=== PATIENT | male | born 1960 | race Caucasian/White ===

== ENCOUNTER 2019-03-24 20:05 | Inpatient (IN) | payer MEDICARE ==
[2019-03-24 21:06] LABS: Absolute Lymphocytes (CBC) 0.9 K/uL (0.7-4.9); Basophils % 0.6 % (0-1.3); Hematocrit 57.9 % (39.6-49.0); Lymphocytes % 11.1 % (15.3-44.8); MPV 10.1 fL (7.6-11.3); RBC Red Blood Cell Count 6.19 M/uL (4.33-5.43)
[2019-03-24] MEDS ORDERED: NA CHLORIDE 0.9% 2,000 ML ONE (21:14)
[2019-03-24] MEDS ORDERED: CLINDAMYCIN 600MG/D5W 600 MG/50 ML BAG IV ONE (21:14)
[2019-03-24 21:15] LABS: Protime INR 1.32
[2019-03-24 21:27] LABS: Blood Morphology Comment NOT SEEN (NOT SEEN); Platelet Estimate DECR; Platelets, Giant PRESENT; Urine White Blood Cell Casts OK
[2019-03-24 21:28] LABS: ALT/SGPT 19 U/L (12-78); AST/SGOT 13 U/L (15-37); Albumin 3.7 g/dL (3.4-5.0); Alkaline Phosphatase 66 U/L (45-117); Amylase Level 24 U/L (25-115); BUN Blood Urea Nitrogen 17 mg/dL (7-18); Bicarbonate 32 mmol/L (21-32); Bilirubin Direct 0.4 mg/dL (0-0.2); Bilirubin Total 2.5 mg/dL (0.2-1.0); CKMB Creatine Kinase MB 2.4 ng/mL (0.3-3.6); Creatine Phosphokinase 66 U/L (39-308); Glucose Level 101 mg/dL (74-106); Lipase 42 U/L (73-393); Potassium 3.8 mmol/L (3.5-5.1); Protein, Total 7.3 g/dL (6.4-8.2); Sodium Level 137 mmol/L (136-145); Troponin (Emerg Dept Use Only) < 0.02 ng/mL (0.0-0.045)
[2019-03-24] MEDS ORDERED: NA CHLORIDE 0.9% 250 ML ONE (21:55)
[2019-03-24] MEDS ORDERED: VANCOMYCIN 1 GM/VIAL ONE (21:55)
[2019-03-24 22:12] LABS: Urine Blood NEGATIVE (NEG); Urine Glucose NEGATIVE (NEG); Urine Protein NEGATIVE (NEG)
[2019-03-24 22:23] LABS: Urine Bacteria <20 /HPF (NONE SEEN); Urine Culture Reflex Order NOT NEEDED; Urine RBC <5 /HPF (NONE SEEN)
[2019-03-24] MEDS ORDERED: ASPIRIN 81 MG CHEWABLE TABLET ONE (23:36)
[2019-03-25] MEDS ORDERED: PIPER/TAZO/NS 3.375gm 3.375 GM/100 ML BAG ONE ×2 (00:38→01:18)
[2019-03-25] MEDS ORDERED: NICOTINE 21 MG/PAT TD ONE (00:38)
--- NOTE | 2019-03-25 01:39 | ER ---
Nurse's Notes [facility] Name: Wisam Espinal Age: 58 yrs Sex: Male : 1960 Arrival Date: 03/24/2019 Time: 20:10 Bed 5 Private MD: Diagnosis: Cellulitis of left lower limb Presentation: 03/24 20:15 Presenting complaint: Patient states: redness, swelling to LLE started today, from alcaraz iw to ankle. Transition of care: patient was not received from another setting of care. Onset of symptoms was March 24, 2019. Risk Assessment: Do you want to hurt yourself or someone else? Patient reports no desire to harm self or others. Initial Sepsis Screen: Does the patient meet any 2 criteria? No. Patient's initial sepsis screen is negative. Does the patient have a suspected source of infection? No. Patient's initial sepsis screen is negative. Care prior to arrival: None. 20:15 Method Of Arrival: Ambulatory iw 20:15 Acuity: ELLIOTT 3 iw Historical: - Allergies: 20:18 Tetanus Vaccines \T\ Toxoid; iw - Home Meds: 20:18 oxycodone 10 mg oral tab every 6 hours [Active]; Lyrica Oral [Active]; Albuterol iw Nebulizer [Active]; Albuterol Inhl [Active]; - PMHx: 20:18 COPD; Chronic pain; iw - PSHx: 20:18 back; Appendectomy; iw - Immunization history:: Adult Immunizations not up to date, Last tetanus immunization:. - Coronavirus screen:: The patient has NOT traveled to [place], [place], or [place] in the past 14 days. Proceed with normal triage process as indicated. - Social history:: Smoking status: Patient reports the use of cigarette tobacco products, smokes one pack cigarettes per day. - Ebola Screening: : Patient negative for fever greater than or equal to 101.5 degrees Fahrenheit, and additional compatible Ebola Virus Disease symptoms Patient denies exposure to infectious person Patient denies travel to an Ebola-affected area in the 21 days before illness onset No symptoms or risks identified at this time. Screenin:00 Abuse screen: Denies threats or abuse. Nutritional screening: No deficits noted. vc Tuberculosis screening: No symptoms or risk factors identified. Fall Risk None identified. Assessment: 20:30 General: Appears in no apparent distress. comfortable, Behavior is calm, cooperative. vc Pain: Denies pain. Neuro: Level of Consciousness is awake, alert, obeys commands, Oriented to person, place, time. Cardiovascular: Capillary refill < 3 seconds Patient's skin is warm and dry. Respiratory: Respiratory effort is even, unlabored. GI: No signs and/or symptoms were reported involving the gastrointestinal system. : No signs and/or symptoms were reported regarding the genitourinary system. EENT: No signs and/or symptoms were reported regarding the EENT system. Derm: Skin is moist, Skin is red, red to left lower leg. Musculoskeletal: Range of motion: intact in all extremities. 21:30 Reassessment: Patient and/or family updated on plan of care and expected duration. Pain vc level reassessed. 22:30 Reassessment: Patient and/or family updated on plan of care and expected duration. Pain vc level reassessed. Patient is alert, oriented x 3, equal unlabored respirations, skin warm/dry/pink. Patient denies pain at this time. 23:30 Reassessment: Patient and/or family updated on plan of care and expected duration. Pain vc level reassessed. Family at bedside. Patient states feeling better. 03/25 00:30 Reassessment: Patient is alert, oriented x 3, equal unlabored respirations, skin vc warm/dry/pink. Patient denies pain at this time. 01:30 Reassessment: Patient and/or family updated on plan of care and expected duration. Pain vc level reassessed. Provider at bedside. 01:52 Reassessment: report given to Ally JIMENEZ nurse for room 221. jd3 Vital Signs: 03/24 20:18 BP 125 / 96; Pulse 105; Resp 20; Temp 98.4; Pulse Ox 90% on R/A; Weight 122.47 kg; iw Height 6 ft. (182.88 cm); Pain 10/10; 21:24 BP 127 / 81; Pulse 98; Resp 16; Pulse Ox 100% on R/A; ar5 22:15 BP 118 / 70; Pulse 95; Resp 20; Pulse Ox 95% on R/A; Pain 0/10; vc 23:00 BP 111 / 72; Pulse 95; Resp 18; Pulse Ox 97% on 3 lpm NC; vc 23:42 BP 111 / 72; Pulse 94; Resp 18 S; Pulse Ox 95% on R/A; jd3 03/25 00:30 BP 132 / 88; Pulse 89; Resp 18; Pulse Ox 97% on 3 lpm NC; vc 01:15 BP 123 / 98; Pulse 92; Resp 18; Pulse Ox 95% on 3 lpm NC; vc 03/24 20:18 Body Mass Index 36.62 (122.47 kg, 182.88 cm) iw ED Course: 03/24 20:10 Patient arrived in ED. jg7 20:16 Triage completed. iw 20:18 Arm band placed on. iw 20:23 Chel Maguire FNP-C is PHCP. snw 20:23 Ross Sanchez MD is Attending Physician. snw 20:28 Sunitha Yoder, TONY is Primary Nurse. vc 20:30 Patient has correct armband on for positive identification. vc 20:46 Chest Single View XRAY In Process Unspecified. EDMS 20:55 Inserted saline lock: 20 gauge in right antecubital area, using aseptic technique. lp1 Blood collected. 20:55 Initial lab(s) drawn, by me, sent to lab. First set of blood cultures drawn by me. lp1 21:41 Lower Extremity Artery Uni Ltd US In Process Unspecified. EDMS 23:20 Inserted saline lock: 20 gauge in right antecubital area, using aseptic technique. [facility] 03/25 01:37 Deyanira Do MD is Hospitalizing Provider. snw 01:54 No provider procedures requiring assistance completed. Patient admitted, IV remains in jd3 place. Administered Medications: 03/24 21:45 Drug: NS 0.9% (30 ml/kg) 30 ml/kg Route: IV; Rate: bolus; Site: right antecubital; vc 03/25 01:51 Follow up: IV Status: Infusion continued upon transfer vc 03/24 22:06 Drug: vancoMYCIN 1 grams Route: IVPB; Infused Over: 2 hrs; Site: right antecubital; vc 23:30 Follow up: Response: No adverse reaction; IV Status: Completed infusion vc 22:07 Drug: Clindamycin 600 mg Route: IVPB; Infused Over: 30 mins; Site: right antecubital; vc 23:30 Follow up: Response: No adverse reaction; IV Status: Completed infusion vc 23:40 Drug: Aspirin Chewable Tablet 81 mg Route: PO; vc 03/25 01:46 Follow up: Response: No adverse reaction vc 00:46 Drug: Nicotine 21 mg/24 hr 1 patches {Note: right shoulder.} Route: Transdermal; Site: vc affected area; 01:30 Drug: Zosyn 3.375 grams Route: IVPB; Infused Over: 60 mins; Site: left antecubital; vc 01:49 Follow up: Response: No adverse reaction; Medication administered at discharge. vc 01:49 Follow up: IV Status: Infusion continued upon transfer; Patient transfered to floor vc with IV infusing Intake: Outcome: 01:38 Decision to Hospitalize by Provider. snw 01:54 Admitted to Med/surg accompanied by tech, via wheelchair, room 221, with chart, Report jd3 called to Ally JIMENEZ 01:54 Condition: stable 01:54 Instructed on the need for admit, Demonstrated understanding of instructions. 02:13 Patient left the ED. vc Signatures: Dispatcher [employer] EDMS Chel Maguire, HAT RENOVATOR-C HAT RENOVATOR-Csnw Zhanna Bhakta, RN Luba Velasco RN RN lp1 Adi Montes RN RN jd3 Susie Davis Jessica jg7 Calcote, Vanessa, RN RN vc
--- NOTE | 2019-03-25 01:39 | EDPHYS ---
Physician Documentation [facility] Name: Wisam Espinal Age: 58 yrs Sex: Male : 1960 Arrival Date: 03/24/2019 Time: 20:10 Bed 5 Private MD: ED Physician Ross Sanchez HPI: 03/24 22:11 This 58 yrs old Male presents to ER via Ambulatory with complaints of Leg snw Swelling. 22:11 The patient presents with pain, that is acute, swelling, tenderness. The complaints snw affect the left leg. Context: The problem was sustained at home, resulted from an unknown cause, the patient can partially bear weight, the patient is able to ambulate. Onset: The symptoms/episode began/occurred gradually, yesterday, and became worse today. Associated signs and symptoms: Pertinent positives: fever, swelling, redness. Treatment prior to arrival includes: no previous treatment. Severity of symptoms: At their worst the symptoms were moderate, severe. The patient has not experienced similar symptoms in the past. The patient has not recently seen a physician. hx of COPD, chronic pain. Used to see Dr. Abdullahi, Dr. Urrutia. Dr. Abdullahi moved and pt has no PCP. Historical: - Allergies: 20:18 Tetanus Vaccines \T\ Toxoid; iw - Home Meds: 20:18 oxycodone 10 mg oral tab every 6 hours [Active]; Lyrica Oral [Active]; Albuterol iw Nebulizer [Active]; Albuterol Inhl [Active]; - PMHx: 20:18 COPD; Chronic pain; iw - PSHx: 20:18 back; Appendectomy; iw - Immunization history:: Adult Immunizations not up to date, Last tetanus immunization:. - Coronavirus screen:: The patient has NOT traveled to [place], [place], or [place] in the past 14 days. Proceed with normal triage process as indicated. - Social history:: Smoking status: Patient reports the use of cigarette tobacco products, smokes one pack cigarettes per day. - Ebola Screening: : Patient negative for fever greater than or equal to 101.5 degrees Fahrenheit, and additional compatible Ebola Virus Disease symptoms Patient denies exposure to infectious person Patient denies travel to an Ebola-affected area in the 21 days before illness onset No symptoms or risks identified at this time. ROS: 22:11 Constitutional: Negative for fever, chills, and weight loss, Eyes: Negative for injury, snw pain, redness, and discharge, ENT: Negative for injury, pain, and discharge, Neck: Negative for injury, pain, and swelling, Cardiovascular: Negative for chest pain, palpitations, and edema, Respiratory: Negative for shortness of breath, cough, wheezing, and pleuritic chest pain, Abdomen/GI: Negative for abdominal pain, nausea, vomiting, diarrhea, and constipation, Back: Negative for injury and pain, : Negative for injury, bleeding, discharge, and swelling, MS/Extremity: Negative for injury and deformity, Neuro: Negative for headache, weakness, numbness, tingling, and seizure. 22:11 Skin: Positive for cellulitis, erythema, swelling, of the left calf. Exam: 20:48 Constitutional: This is a well developed, well nourished patient who is awake, alert, snw and in no acute distress. Head/Face: Normocephalic, atraumatic. Eyes: Pupils equal round and reactive to light, extra-ocular motions intact. Lids and lashes normal. Conjunctiva and sclera are non-icteric and not injected. Cornea within normal limits. Periorbital areas with no swelling, redness, or edema. ENT: Nares patent. No nasal discharge, no septal abnormalities noted. Tympanic membranes are normal and external auditory canals are clear. Oropharynx with no redness, swelling, or masses, exudates, or evidence of obstruction, uvula midline. Mucous membranes moist. Neck: Trachea midline, no thyromegaly or masses palpated, and no cervical lymphadenopathy. Supple, full range of motion without nuchal rigidity, or vertebral point tenderness. No Meningismus. Chest/axilla: Normal chest wall appearance and motion. Nontender with no deformity. No lesions are appreciated. Cardiovascular: Regular rate and rhythm with a normal S1 and S2. No gallops, murmurs, or rubs. Normal PMI, no JVD. No pulse deficits. Respiratory: Lungs have equal breath sounds bilaterally, clear to auscultation and percussion. No rales, rhonchi or wheezes noted. Mild increased work of breathing, no retractions or nasal flaring. Pt's norm is 90-92% room air Abdomen/GI: Soft, non-tender, with normal bowel sounds. No distension or tympany. No guarding or rebound. No evidence of tenderness throughout. Back: No spinal tenderness. No costovertebral tenderness. Full range of motion. Neuro: Awake and alert, GCS 15, oriented to person, place, time, and situation. Cranial nerves II-XII grossly intact. Motor strength 5/5 in all extremities. Sensory grossly intact. Cerebellar exam normal. Normal gait. Psych: Awake, alert, with orientation to person, place and time. Behavior, mood, and affect are within normal limits. 20:48 Skin: Appearance: normal except for affected area, cellulitis, that is severe, well demarcated, on the lateral aspect of left calf, left calf, medial aspect of left calf and left alcaraz. Vital Signs: 20:18 BP 125 / 96; Pulse 105; Resp 20; Temp 98.4; Pulse Ox 90% on R/A; Weight 122.47 kg; iw Height 6 ft. (182.88 cm); Pain 10/10; 21:24 BP 127 / 81; Pulse 98; Resp 16; Pulse Ox 100% on R/A; ar5 22:15 BP 118 / 70; Pulse 95; Resp 20; Pulse Ox 95% on R/A; Pain 0/10; vc 23:00 BP 111 / 72; Pulse 95; Resp 18; Pulse Ox 97% on 3 lpm NC; vc 23:42 BP 111 / 72; Pulse 94; Resp 18 S; Pulse Ox 95% on R/A; jd3 03/25 00:30 BP 132 / 88; Pulse 89; Resp 18; Pulse Ox 97% on 3 lpm NC; vc 01:15 BP 123 / 98; Pulse 92; Resp 18; Pulse Ox 95% on 3 lpm NC; vc 03/24 20:18 Body Mass Index 36.62 (122.47 kg, 182.88 cm) iw MDM: 03/24 20:24 Patient medically screened. mimi 03/25 01:35 Data reviewed: vital signs, nurses notes. Data interpreted: Pulse oximetry: on room air snw is 95 %. Interpretation: acceptable. Counseling: I had a detailed discussion with the patient and/or guardian regarding: the historical points, exam findings, and any diagnostic results supporting the discharge/admit diagnosis, lab results, radiology results, the need for further work-up and treatment in the hospital. Physician consultation: Deyanira Do MD was called at 00:45, was contacted at 00:45, regarding admission, to the telemetry unit. 03/24 20:38 Order name: Amylase, Serum; Complete Time: 21:30 w 03/24 20:38 Order name: Basic Metabolic Panel; Complete Time: 21:30 w 03/24 20:38 Order name: Blood Culture Adult (2) 03/24 20:38 Order name: CBC with Diff; Complete Time: 21:30 w 03/24 20:38 Order name: Ckmb; Complete Time: 21:30 w 03/24 20:38 Order name: CPK; Complete Time: 21:30 w 03/24 20:38 Order name: Lactate; Complete Time: 22:11 03/24 20:38 Order name: LFT's; Complete Time: 21:30 w 03/24 20:38 Order name: Lipase; Complete Time: 21:30 03/24 20:38 Order name: Procalcitonin; Complete Time: 22:11 03/24 20:38 Order name: Protime (+inr); Complete Time: 21:21 w 03/24 20:38 Order name: Ptt, Activated; Complete Time: 21:21 03/24 20:38 Order name: Troponin (emerg Dept Use Only); Complete Time: 21:30 w 03/24 20:38 Order name: Urine Microscopic Only; Complete Time: 22:28 w 03/24 20:38 Order name: Chest Single View XRAY 03/24 20:38 Order name: Accucheck; Complete Time: 21:27 w 03/24 20:38 Order name: Cardiac monitoring; Complete Time: 21:27 w 03/24 20:38 Order name: EKG - Nurse/Tech; Complete Time: 21:27 w 03/24 20:38 Order name: IV Saline Lock - Large Bore; Complete Time: 21:09 w 03/24 20:38 Order name: Lower Extremity Artery Uni Ltd US 03/24 21:12 Order name: CBC Smear Scan; Complete Time: 21:30 EDMS 03/24 21:37 Order name: Glucose, Ancillary Testing; Complete Time: 22:11 EDMS 03/24 22:05 Order name: Urine Dipstick--Ancillary (enter results); Complete Time: 22:14 sp 03/25 01:32 Order name: Sedimentation RateSamuel EDMS 03/24 20:38 Order name: Labs collected and sent; Complete Time: 21:09 snw 03/24 20:38 Order name: O2 Per Protocol; Complete Time: 21:27 snw 03/24 20:38 Order name: O2 Sat Monitoring; Complete Time: 21:27 snw Administered Medications: 03/24 21:45 Drug: NS 0.9% (30 ml/kg) 30 ml/kg Route: IV; Rate: bolus; Site: right antecubital; vc 03/25 01:51 Follow up: IV Status: Infusion continued upon transfer vc 03/24 22:06 Drug: vancoMYCIN 1 grams Route: IVPB; Infused Over: 2 hrs; Site: right antecubital; vc 23:30 Follow up: Response: No adverse reaction; IV Status: Completed infusion vc 22:07 Drug: Clindamycin 600 mg Route: IVPB; Infused Over: 30 mins; Site: right antecubital; vc 23:30 Follow up: Response: No adverse reaction; IV Status: Completed infusion vc 23:40 Drug: Aspirin Chewable Tablet 81 mg Route: PO; vc 03/25 01:46 Follow up: Response: No adverse reaction vc 00:46 Drug: Nicotine 21 mg/24 hr 1 patches {Note: right shoulder.} Route: Transdermal; Site: vc affected area; 01:30 Drug: Zosyn 3.375 grams Route: IVPB; Infused Over: 60 mins; Site: left antecubital; vc 01:49 Follow up: Response: No adverse reaction; Medication administered at discharge. vc 01:49 Follow up: IV Status: Infusion continued upon transfer; Patient transfered to floor vc with IV infusing Disposition: 02:31 Co-signature as Attending Physician, Ross Sanchez MD I agree with the assessment and mimi plan of care. Disposition: 03/25/19 01:38 Hospitalization ordered by Deyanira Do for Inpatient Admission. Preliminary diagnosis is Cellulitis of left lower limb. - Bed requested for Telemetry/MedSurg (Inpatient). - Status is Inpatient Admission. vc - Condition is Stable. - Problem is new. - Symptoms are unchanged. UTI on Admission? No Signatures: Dispatcher [employer] EDMS Ross Sanchez MD MD cha Therrien, Shelly, SITE PROMOTION AGENT-C SITE PROMOTION AGENT-Csnw Zhanna Bhakta, RN RN Grace Connor RN RN cg Sunitha Yoder RN RN vc Corrections: (The following items were deleted from the chart) 01:38 01:38 Hospitalization Ordered by Deyanira oD MD for Inpatient Admission. Preliminary cg diagnosis is Cellulitis of left lower limb. Bed requested for Telemetry/MedSurg (Inpatient). Status is Inpatient Admission. Condition is Stable. Problem is new. Symptoms are unchanged. UTI on Admission? No. snw 02:13 01:38 03/25/2019 01:38 Hospitalization Ordered by Deyanira Do MD for Inpatient vc Admission. Preliminary diagnosis is Cellulitis of left lower limb. Bed requested for Telemetry/MedSurg (Inpatient). Status is Inpatient Admission. Condition is Stable. Problem is new. Symptoms are unchanged. UTI on Admission? No. cg
[2019-03-25 02:26] VITALS: BMI 37.2
[2019-03-25] MEDS ORDERED: ONDANSETRON 4 MG/2 ML VIAL IV PRN (03:18)
[2019-03-25] MEDS ORDERED: MORPHINE 2 MG/ML SYR IV PRN (03:18)
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
[2019-03-25 06:46] LABS: Absolute Lymphocytes (CBC) 1.3 K/uL (0.7-4.9); Basophils % 0.4 % (0-1.3); Hematocrit 52.4 % (39.6-49.0); Lymphocytes % 17.7 % (15.3-44.8); MPV 10.8 fL (7.6-11.3); RBC Red Blood Cell Count 5.65 M/uL (4.33-5.43)
[2019-03-25 06:59] LABS: Protime INR 1.17
[2019-03-25 07:16] LABS: Bilirubin Total 1.9 mg/dL (0.2-1.0); Magnesium 2.1 mg/dL (1.8-2.4); Potassium 4.2 mmol/L (3.5-5.1); Protein, Total 6.2 g/dL (6.4-8.2); Thyroid Stimulating Hormone 1.2 uIU/mL (0.360-3.740)
[2019-03-25 07:20] LABS: Blood Morphology Comment NOT SEEN (NOT SEEN); Platelet Estimate DECR; Urine White Blood Cell Casts OK
[2019-03-25] MEDS: PIPER/TAZO/NS 3.375gm 3.375 GM/100 ML BAG IVPB SCH ×2 (08:58→18:01)
[2019-03-25] MEDS: NICOTINE 14 MG/PAT TD SCH (08:58)
[2019-03-25] MEDS: VANCOMYCIN 2 GM in NA CHLORIDE 0.9% 500 ML IVPB SCH ×2 (08:59→21:14)
[2019-03-25] MEDS ORDERED: CLINDAMYCIN INJ 600 MG in NA CHLORIDE 0.9% 50 ML IV SCH (09:00)
[2019-03-25] MEDS ORDERED: ACETAMINOPHEN PO PRN (10:46)
[2019-03-25] MEDS ORDERED: OXYCODONE HCL PO PRN (10:46)
--- NOTE | 2019-03-25 10:46 | P.PN ---
Subjective Date of Service: 03/25/19 Chief Complaint: LLE swelling and erythema Subjective: Improving (Patient doing well slight pain has cellulitis of the left leg) Review of Systems 10-point ROS is otherwise unremarkable Physical Examination - Vital Signs Temperature: 98 F Blood Pressure: 135/77 Pulse: 92 Respirations: 18 Pulse Ox (%): 95 - Physical Exam General: Alert, In no apparent distress, Oriented x3 Neck: Supple, Other Cardiovascular: Edema Gastrointestinal: Normal bowel sounds, Soft and benign, Non-distended Integumentary: Other (Patient has cellulitis of the left leg extending about 4 inches below the knee) Other Physical/Emotional Findings: LLE w/ erythema, swelling and dry skin. breaks in skin of the plantar surface of the foot. erythema extends from dorsum of foot to the knee. - Studies Laboratory Data (last 24 hrs) 03/24/19 20:55: PT 15.4 H, INR 1.32, APTT 37.0 H 03/24/19 20:55: WBC 8.2, Hgb 19.0 H, Hct 57.9 H, Plt Count 108 L 03/24/19 20:55: Sodium 137, Potassium 3.8, BUN 17, Creatinine 1.14, Glucose 101 , Total Bilirubin 2.5 H, AST 13 L, ALT 19, Alkaline Phosphatase 66, Amylase 24 L , Lipase 42 L Assessment & Plan - Problems (Diagnosis) (1) Cellulitis and abscess of left leg Current Visit: Yes Status: Acute Plan: Patient is 58 years of age admitted with cellulitis is clinically doing better he has a history of severe COPD add cultures are pending labs unremarkable white count is normal possible discharge tomorrow combination of doxycycline and cephalosporin low risk for Mr SA Discharge Plan: Home Plan to discharge in: 24 Hours
--- NOTE | 2019-03-25 11:18 | RAD REPORT ---
EXAM DESCRIPTION: RAD - Chest Single View - 03/24/2019 8:46 pm CLINICAL HISTORY: leg infection;COPD Chest pain. COMPARISON: Chest Pa And Lat (2 Views) dated 04/26/2018; Chest Pa And Lat (2 Views) dated 01/21/2016; CHEST PA AND LAT 2 VIEW dated 06/22/2011; CHEST PA AND LAT 2 VIEW dated 12/02/2010; Lung Cancer Screen ing CT W/O dated 05/17/2018 FINDINGS: Portable technique limits examination quality. Chronic right basilar opacity is present likely representing chronic atelectasis. Mild interstitial p ulmonary edema is possible. The heart is upper limit normal size. Small left pleural effusion. No dis placed fractures.
--- NOTE | 2019-03-25 11:22 | RAD REPORT ---
EXAM DESCRIPTION: US - Lower Extremity Artery Uni Ltd - 03/24/2019 9:41 pm CLINICAL HISTORY: Swelling;Pain COMPARISON: No comparisons FINDINGS: Left lower extremity arterial Doppler interrogation was performed. Diffuse monophasic waveforms are seen throughout the left lower extremity arterial system. No occlusi on is present. Flow velocities are within acceptable limits. IMPRESSION: Diffuse monophasic waveforms throughout the left lower extremity arterial system likely indicates presence of inflow stenosis.
[2019-03-25] MEDS: Oxycodone HCl/Acetaminophen 1 TAB TAB PO PRN ×2 (15:57→21:14)
[2019-03-25] MEDS ORDERED: VANCOMYCIN/NS 1 gm 1 GM/250 ML BAG IVPB SCH (19:00)
[2019-03-25] MEDS ORDERED: PREGABALIN 75 MG PO SCH (21:00)
[2019-03-25] MEDS: PREGABALIN 75 MG CAP PO SCH (21:14)
[2019-03-25] MEDS ORDERED: NA CHLORIDE 0.9% 250 ML ONE (22:54)
[2019-03-26] MEDS: PIPER/TAZO/NS 3.375gm 3.375 GM/100 ML BAG IVPB SCH ×2 (00:18→08:38)
[2019-03-26] MEDS: Oxycodone HCl/Acetaminophen 1 TAB TAB PO PRN ×2 (03:13→08:37)
[2019-03-26 06:44] LABS: Hematocrit 53.8 % (39.6-49.0); MPV 10.2 fL (7.6-11.3); RBC Red Blood Cell Count 5.71 M/uL (4.33-5.43)
[2019-03-26 08:15] LABS: Blood Morphology Comment NOT SEEN (NOT SEEN); Platelet Estimate DECR; Urine White Blood Cell Casts OK
[2019-03-26 08:23] VITALS: BP 137/84; TEMP 98
[2019-03-26] MEDS: PREGABALIN 75 MG CAP PO SCH (08:37)
[2019-03-26] MEDS: NICOTINE 14 MG/PAT TD SCH (08:38)
[2019-03-26] MEDS: VANCOMYCIN 2 GM in NA CHLORIDE 0.9% 500 ML IVPB SCH (08:39)
--- NOTE | 2019-03-26 09:58 | P.DS ---
Admission Date: 03/25/19 Discharge Date: 03/26/19 Disposition: ROUTINE DISCHARGE Discharge Condition: GOOD Reason for Admission: LLE swelling and erythema - Problems (1) Cellulitis and abscess of left leg Current Visit: Yes Status: Acute Brief History of Present Illness: Patient is 58 years of age with a history of severe COPD admitted with cellulitis Hospital Course: Clinical course was uncomplicated was treated with antibiotics at the time of her discharge there was no progression of his cellulitis pain and declined vital signs stable cultures negative no fever chest clear cardiovascular system os sounds normal abdomen soft extremities is been no significant change or progression of his underlying redness in the left leg patient is able to ambulate. He has been instructed to follow up with primary care or call my office if there is any questions he does need a referral to come and see me for a specialist will fax in a refill in for [employer] Vital Signs/Physical Exam: Temp Pulse Resp BP Pulse Ox 98 F 72 20 137/84 93 03/26/19 08:00 03/26/19 08:00 03/26/19 08:37 03/26/19 08:00 03/26/19 08:37 Other Physical/Emotional Findings: LLE w/ erythema, swelling and dry skin. breaks in skin of the plantar surface of the foot. erythema extends from dorsum of foot to the knee. Laboratory Data at Discharge: WBC 6.1 K/uL (4.3-10.9) D 03/26/19 05:58 Hgb 17.5 g/dL (13.6-17.9) 03/26/19 05:58 Hct 53.8 % (39.6-49.0) H 03/26/19 05:58 Plt Count 96 K/uL (152-406) L 03/26/19 05:58 PT 13.7 SECONDS (9.5-12.5) H 03/25/19 06:18 INR 1.17 03/25/19 06:18 APTT 33.2 SECONDS (24.3-36.9) 03/25/19 06:18 Sodium 139 mmol/L (136-145) 03/25/19 06:18 Potassium 4.2 mmol/L (3.5-5.1) 03/25/19 06:18 BUN 15 mg/dL (7-18) 03/25/19 06:18 Creatinine 0.94 mg/dL (0.55-1.3) 03/25/19 06:18 Glucose 84 mg/dL (74-106) 03/25/19 06:18 Magnesium 2.1 mg/dL (1.8-2.4) 03/25/19 06:18 Total Bilirubin 1.9 mg/dL (0.2-1.0) H 03/25/19 06:18 AST 14 U/L (15-37) L 03/25/19 06:18 ALT 18 U/L (12-78) 03/25/19 06:18 Alkaline Phosphatase 60 U/L (45-117) 03/25/19 06:18 Triglycerides 87 mg/dL (<150) 03/25/19 06:18 Cholesterol 108 mg/dL (<200) 03/25/19 06:18 HDL Cholesterol 39 mg/dL (40-60) L 03/25/19 06:18 Cholesterol/HDL Ratio 2.77 03/25/19 06:18 Amylase 24 U/L (25-115) L 03/24/19 20:55 Lipase 42 U/L (73-393) L 03/24/19 20:55 Home Medications: Oxycodone HCl/Acetaminophen [Percocet 10-325 mg Tablet] 1 each PO Q6H PRN Pregabalin [Lyrica] 75 mg PO BID 06/07/16 Cephalexin [Keflex*] 500 mg PO Q6HR 10 Days cap 03/25/19 Doxycycline Hyclate 100 mg PO BID 15 Days capsule 03/25/19 New Medications: Cephalexin [Keflex*] 500 mg PO Q6HR 10 Days cap Doxycycline Hyclate 100 mg PO BID 15 Days capsule Patient Discharge Instructions: Patient to follow up with primary care OBED call my office with questions Diet: Regular Activity: Ad claire
[2019-03-26 11:44] VITALS: O2SAT 94
--- NOTE | 2019-03-26 12:01 | EKG ---
Test Date: 2019-03-24 Test Time: 21:21:12 [place] [employer] Operator: DANYELL MEASUREMENT RESULTS: Intervals: Rate: 98 WV: 170 QRSD: 76 QT: 342 QTc: 436 [place]: P: 68 WV: 170 QRS: -1 T: 36 INTERPRETIVE STATEMENTS: Normal sinus rhythm Possible Left atrial enlargement Borderline ECG Compared to ECG 01/20/2016 16:31:50 No significant changes Electronically Signed On 03-26-19 12:00:37 [employer]ANDSCAPE PAINTER by Linus Lowe
== END 2019-03-26 12:10 | disposition home or self-care (01) | DRG 603 ==
LOC: ER 20:05 → ERHOLD 03-25 01:39 → 2ND 03-25 01:57
PROVIDERS: ADMIT Internal Medicine; ATTEND Internal Medicine Sleep Medicine
DX: L03.116 Cellulitis of left lower limb (principal); J44.9 Chronic obstructive pulmonary disease, unspecified; E66.9 Obesity, unspecified; Z68.37 Body mass index [BMI] 37.0-37.9, adult; F17.210 Nicotine dependence, cigarettes, uncomplicated
CPT/HCPCS: 36415; 71045; 80048; 80053; 80061; 80076; 81003; 81015; 82150; 82550; 82553; 82947; 83036; 83605; 83690; 83735; 84145; 84443; 84484; 85025; 85027; 85610; 85652; 85730; 87040; 93005; 93926; 96361; 96365; 96367; 96368; 99285; J2270; J2543; J7030; J7040

== ENCOUNTER 2022-12-16 18:33 | Inpatient (IN) | payer MEDICARE, OTHER ==
[2022-12-16 18:54] LABS: Absolute Lymphocytes (CBC) 0.8 K/uL (0.7-4.9); Hematocrit 52.8 % (39.6-49.0); Lymphocytes % 6.1 % (15.3-44.8); MCV 92.5 fL (80-100); Platelets 137 thou/uL (152-406); RBC Red Blood Cell Count 5.71 M/uL (4.33-5.43)
[2022-12-16 18:58] LABS: Protime INR 1.34
--- NOTE | 2022-12-16 19:28 | RAD REPORT ---
EXAM DESCRIPTION: CT - CTHCSPWOC - 12/16/2022 6:55 pm CLINICAL HISTORY: TRAUMA COMPARISON: No comparisons TECHNIQUE: Axial thin cut noncontrast CT images of the head were obtained. Axial thin cut noncontrast CT images of the cervical spine were obtained. Multiplanar reformatted images were generated and reviewed. All CT scans are performed using dose optimization technique as appropriate and may include automated exposure control or mA/KV adjustment according to patient size. FINDINGS: CT HEAD WITHOUT CONTRAST: No acute hemorrhage, hydrocephalus or extra-axial collection is identified.No areas of brain edema or midline shift. Polypoidal mucosal thickening in the right maxillary sinus.The calvarium is intact. CT CERVICAL SPINE WITHOUT CONTRAST: No fracture or subluxation.Mild degenerative changes, with mild degrees of disc height loss at C4-5, C5-6, and C6-7. Mild right neural foraminal narrowing at C5-6 and C6-7, and moderate severe neural fo raminal narrowing on the left at C3-4.No prevertebral soft tissues swelling is identified. IMPRESSION: No acute traumatic intracranial or cervical spine findings. Cervical spine degenerative changes as above. Polypoidal mucosal thickening in the right maxillary sinus.
[2022-12-16 19:29] LABS: ALT/SGPT 58 U/L (16-61); AST/SGOT 21 U/L (15-37); Albumin 3.1 g/dL (3.4-5.0); Alkaline Phosphatase 69 U/L (45-117); BUN Blood Urea Nitrogen 35 mg/dL (7-18); Bicarbonate > 45 mEq/L (21-32); Bilirubin Direct 0.3 mg/dL (0-0.2); Bilirubin Total 1.3 mg/dL (0.2-1.0); Glomerular Filtration Rate 69 ml/min (=/>90); Glucose Level 124 mg/dL (74-106); Magnesium 2.4 mg/dL (1.6-2.4); NT PRO-BNP 4784 pg/mL (<125); Potassium 2.7 mEq/L (3.5-5.1); Protein, Total 6.2 g/dL (6.4-8.2); Sodium Level 137 mEq/L (136-145); Troponin High Sensitivity 32.3 pg/mL (<58.9)
--- NOTE | 2022-12-16 19:33 | RAD REPORT ---
EXAM DESCRIPTION: [facility] Single View12/16/2022 7:02 pm CLINICAL HISTORY: COPD COMPARISON: Chest Single View dated 03/24/2019; Chest Pa And Lat (2 Views) dated 04/26/2018; Chest Pa And Lat (2 Views) dated 01/21/2016; CHEST PA AND LAT 2 VIEW dated 06/22/2011 TECHNIQUE: Portable AP view of the chest. FINDINGS: Progressive right mid to lower lung patchy airspace opacification, with background archite ctural distortion. Background changes of COPD. Stable blunting of the left costophrenic angle, may re late to stable trace effusion or pleural thickening. No pneumothorax or effusion. The cardiomediastin al contours are unremarkable. IMPRESSION: Progressive right mid to lower lung patchy airspace opacification. This suggests worseni ng pneumonia until proved otherwise.
--- NOTE | 2022-12-16 19:34 | RAD REPORT ---
EXAM DESCRIPTION: CT - CTFB CLINICAL HISTORY: TRAUMA COMPARISON: Head C Spine Mpr Wo Con dated 12/16/2022 TECHNIQUE: Thin axial noncontrast CT images of the face were obtained with sagittal and coronal yoon nstruction images. All CT scans are performed using dose optimization technique as appropriate and may include automated exposure control or mA/KV adjustment according to patient size. FINDINGS: No acute facial bone fracture is seen.The mandible is intact. The globes and orbital contents are grossly unremarkable.The paranasal sinuses and mastoids are clear . Periapical collections along the roots of the maxillary molars bilaterally, with suspected osseous de fect along the floor of the right maxillary sinus. IMPRESSION: Negative for facial bone fracture. Bilateral maxillary periapical collections. Polypoidal mucosal thickening in the right maxillary sinu s may be of odontogenic nature.
--- NOTE | 2022-12-16 19:56 | ER ---
Nurse's Notes [facility] Name: Wisam Espinal Age: 62 yrs Sex: Male : 1960 Arrival Date: 12/16/2022 Time: 18:33 Bed 20 Private MD: Diagnosis: CHF exacerbation, right-sided pneumonia, generalized weakness, fall, facial contusions Presentation: 12/16 18:34 Chief complaint: EMS states: PT CAME BY EMS FOR MULTIPLE FALLS AND WEAKNESS. TOOK 30 MG db MORPHINE TODAY AT 4PM. HX OF CHRONIC BACK PAIN. PT IS LETHARGIC ANSWERING QUESTIONS APPROPRIATELY. Coronavirus screen: Client denies travel out of the [place] in the last 14 days. At this time, the client does not indicate any symptoms associated with coronavirus-19. Ebola Screen: Patient negative for fever greater than or equal to 101.5 degrees Fahrenheit, and additional compatible Ebola Virus Disease symptoms Patient denies exposure to infectious person. Patient denies travel to an Ebola-affected area in the 21 days before illness onset. No symptoms or risks identified at this time. Initial Sepsis Screen: Does the patient meet any 2 criteria? No. Patient's initial sepsis screen is negative. Does the patient have a suspected source of infection? No. Patient's initial sepsis screen is negative. Risk Assessment: Do you want to hurt yourself or someone else? Patient reports no desire to harm self or others. Onset of symptoms was December 16, 2022. 18:34 Method Of Arrival: EMS: [facility] db 18:34 Acuity: ELLIOTT 2 db Triage Assessment: 18:46 General: Appears distressed, uncomfortable, Behavior is agitated, drowsy. Pain: db Complains of pain in back. Neuro: Level of Consciousness is obeys commands, lethargic, Oriented to person, place, time. Respiratory: Airway is patent Respiratory effort is even, unlabored, Respiratory pattern is regular, symmetrical. Historical: - Allergies: 18:46 Tetanus Vaccines \T\ Toxoid; db - PMHx: 18:46 Chronic pain; COPD; db - Immunization history:: Adult Immunizations unknown. Screenin:48 [facility] ED Fall Risk Assessment (Adult) History of falling in the last 3 months, db including since admission Yes- fall prone (multiple falls) (3 pts) Confusion or Disorientation Yes (5 pts) Intoxicated or Sedated No (0 pts) Impaired Gait Yes (1 pt) Mobility Assist Device Used Yes (1 pt) Altered Elimination No (0 pt) Score/Fall Risk Level 3 or more points = High Risk Oriented to surroundings, Maintained a safe environment, Hourly rounding (assess needs \T\ fall precautionary measures) done, Utilized family, sitter, or virtual wet process miller as indicated. Abuse screen: Denies threats or abuse. Denies injuries from another. Nutritional screening: No deficits noted. Tuberculosis screening: No symptoms or risk factors identified. Assessment: 18:48 Reassessment: SEE TRIAGE FOR INITIAL ASSESSMENT. db 18:49 Reassessment: PT TO CT. db 19:05 Reassessment: PT RETURNED FROM CT. REPORT GIVEN TO TONY STEPHENSON. db 19:10 Reassessment: ASSUMED CARE OF PT. PT SITTING IN BED. O2 IN THE LOW 80s. NEW PULSE OX jj7 APPLIED FOR BETTER READING. PT ON 2.5L. O2 NOW 93%. FAMILY AT BEDSIDE. PT READJUSTED IN BED FOR COMFORT. BRUSIING NOTED TO BRIDGE OF NOSE AND LEFT CHEEK. FAMILY STATES HE FELL TWICE TODAY AND HIT HIS FACE. Vital Signs: 18:34 BP 105 / 69; Pulse 87; Resp 18; Temp 98.7(A); Pulse Ox 90% 2 lpm ; Weight 104.33 kg; db Height 5 ft. 11 in. ; 19:44 BP 113 / 72; Pulse 79; Resp 18; Pulse Ox 93% on 2 lpm NC; jj7 20:30 BP 115 / 67; Pulse 84; Resp 18; Pulse Ox 90% on 2.5 lpm NC; jj7 21:30 BP 116 / 69; Pulse 89; Resp 22; Pulse Ox 95% on 2.5 lpm NC; jj7 18:34 Body Mass Index 32.08 (104.33 kg, 180.34 cm) db ED Course: 18:38 Patient arrived in ED. sb4 18:39 Florence Sosa MD is Attending Physician. sp3 18:40 Ashley Verdugo, TONY is Primary Nurse. db 18:46 Triage completed. db 18:46 Arm band placed on Patient placed in an exam room. db 18:48 Patient has correct armband on for positive identification. Bed in low position. Call db light in reach. Side rails up X2. Client placed on continuous cardiac and pulse oximetry monitoring. NIBP monitoring applied. 18:48 Maintain EMS IV. Dressing intact. Good blood return noted. Site clean \T\ dry. Gauge \T\ db site: 20G LEFT AC. 18:56 CT Head C Spine In Process Unspecified. EDMS 18:56 CT Facial Bones W/O Con In Process Unspecified. EDMS 19:04 XRAY Chest (1 view) In Process Unspecified. EDMS 19:20 Inserted saline lock: 20 gauge in left antecubital area, using aseptic technique. jj7 19:55 Bandar Vizcaino is Hospitalizing Provider. sp3 21:37 Provided Education on: O2 SAT LEVELS. jj7 21:37 No provider procedures requiring assistance completed. Patient admitted, IV remains in jj7 place. Administered Medications: 20:21 Drug: Furosemide IVP 20 mg IVP once; give over 2 minutes Route: IVP; Site: [facility] antecubital; 21:38 Follow up: Response: Marked relief of symptoms jj7 20:21 Drug: Cefepime IVPB 1 grams IVPB at 200 ml/hr once over 30 mins; (mix in NS 100 mL) jj7 Route: IVPB; Rate: 200 ml/hr; Infused Over: 30 mins; Site: right antecubital; 21:00 Follow up: IV Status: Completed infusion jj7 20:21 Drug: Potassium Chloride PO 40 mEq PO once Route: PO; jj7 21:38 Follow up: Response: No adverse reaction jj7 Medication: 21:38 VIS not applicable for this client. jj7 Output: 21:30 Urine: 800ml (Voided); Total: 800ml. jj7 Outcome: 19:56 Decision to Hospitalize by Provider. sp3 21:36 Admitted to Med/surg accompanied by nurse, via stretcher, room 402, Report called to ximena MEADOWS RN 21:36 Condition: stable 21:45 Patient left the ED. jj7 Signatures: Dispatcher [employer] Florence Butler MD MD sp3 Cynthia Sharif RN RN Ashley Duran RN RN Stella Prescott PAFrandyC PAJulia sb4
--- NOTE | 2022-12-16 19:56 | EDPHYS ---
Physician Documentation [facility] Name: Wisam Espinal Age: 62 yrs Sex: Male : 1960 Arrival Date: 12/16/2022 Time: 18:33 Bed 20 Private MD: ED Physician Florence Sosa HPI: 12/16 18:58 This 62 yrs old Male presents to ER via EMS with complaints of facial/head injury, sp3 generalized weakness, SOB. 18:58 63-year-old male with end-stage COPD, CHF, chronic pain presents to the ED after 2 sp3 ground-level mechanical falls due to increasing generalized weakness. 1 fall he injured his face and had a head injury with potential LOC. Patient has also been short of breath with peripheral edema particularly in the lower legs per his . After the second fall, EMS was activated. Patient did have some epistaxis and has dried blood in his nose according to the family. They state that he gets this way when he has CHF or his COPD has exacerbated. Patient speaks minimally at baseline so H\T\P and ROS is significantly limited.. Historical: - Allergies: 18:46 Tetanus Vaccines \T\ Toxoid; db - PMHx: 18:46 Chronic pain; COPD; db - Immunization history:: Adult Immunizations unknown. ROS: 18:59 Constitutional: Negative for fever, chills, and weight loss, Eyes: Negative for injury, sp3 pain, redness, and discharge, Neck: Negative for injury, pain, and swelling, Cardiovascular: Negative for chest pain, palpitations, and edema, Abdomen/GI: Negative for abdominal pain, nausea, vomiting, diarrhea, and constipation, 18:59 Unable to obtain ROS due to baseline dementia, Exam: 19:00 Eyes: Pupils equal round and reactive to light, extra-ocular motions intact. Lids and sp3 lashes normal. Conjunctiva and sclera are non-icteric and not injected. Cornea within normal limits. Periorbital areas with no swelling, redness, or edema. Neck: Trachea midline, no thyromegaly or masses palpated, and no cervical lymphadenopathy. Supple, full range of motion without nuchal rigidity, or vertebral point tenderness. No Meningismus. Chest/axilla: Normal chest wall appearance and motion. Nontender with no deformity. No lesions are appreciated. Cardiovascular: Regular rate and rhythm with a normal S1 and S2. No gallops, murmurs, or rubs. Normal PMI, no JVD. No pulse deficits. Abdomen/GI: Soft, non-tender, with normal bowel sounds. No distension or tympany. No guarding or rebound. No evidence of tenderness throughout. 19:00 Head/face: Significant bruising and abrasions noted to the left greater than right maxillary prominences. Swelling along the left-sided face is also noted. Dried blood noted in the nasal passages bilaterally with no septal hematoma. Teeth are not loose and no malocclusion is present. No other traumatic related findings are noted.. 19:01 ECG was reviewed by the Attending Physician. EKG demonstrates normal sinus rhythm at 87 sp3 bpm with normal intervals except QTc of 577, leftward axis, ectopy and nonspecific diffuse changes throughout. 19:01 Respiratory: Bilateral rhonchi and rales noted. Lower extremity pedal edema 2+ pitting also noted., Vital Signs: 18:34 BP 105 / 69; Pulse 87; Resp 18; Temp 98.7(A); Pulse Ox 90% 2 lpm ; Weight 104.33 kg; db Height 5 ft. 11 in. ; 19:44 BP 113 / 72; Pulse 79; Resp 18; Pulse Ox 93% on 2 lpm NC; jj7 20:30 BP 115 / 67; Pulse 84; Resp 18; Pulse Ox 90% on 2.5 lpm NC; jj7 21:30 BP 116 / 69; Pulse 89; Resp 22; Pulse Ox 95% on 2.5 lpm NC; jj7 18:34 Body Mass Index 32.08 (104.33 kg, 180.34 cm) db MDM: 18:39 Patient medically screened. sp3 19:01 Data reviewed: vital signs, nurses notes, EMS record, old medical records, lab test sp3 result(s), EKG, radiologic studies. ED course: 62-year-old male with chronic conditions with generalized weakness and describable falls. We will evaluate patient from a trauma standpoint however he will likely need to be admitted from a medical standpoint for either COPD exacerbation and/or CHF for multifactorial components. He has had multiple episodes in the past with the same. Disposition likely admission unless traumatic findings require him to be transferred.. 19:48 ED course: CT demonstrates no significant traumatic findings including CT head, C-spine sp3 and facial bones. Laboratory values demonstrate mild leukocytosis, elevated BNP and chest x-ray demonstrates right-sided pneumonia. Patient likely has CHF as well as pneumonia picture contributing to his weakness. Will admit patient from a medicine standpoint and cefepime and Lasix have been started along with blood cultures being drawn. Will admit to medicine service for further work-up and intervention.. 12/16 18:40 Order name: Basic Metabolic Panel; Complete Time: 19:47 sp3 12/16 18:40 Order name: CBC with Diff; Complete Time: 19:47 sp3 12/16 18:40 Order name: LFT's; Complete Time: 19:47 sp3 12/16 18:40 Order name: Magnesium; Complete Time: 19:47 sp3 12/16 18:40 Order name: NT PRO-BNP; Complete Time: 19:47 sp3 12/16 18:40 Order name: PT-INR; Complete Time: 19:47 sp3 12/16 18:40 Order name: Troponin HS; Complete Time: 19:47 sp3 12/16 18:49 Order name: Flu; Complete Time: 19:47 sp3 12/16 18:49 Order name: SARS-COV-2 RT PCR; Complete Time: 19:47 sp3 12/16 19:48 Order name: Blood Culture Adult (2) sp3 12/16 18:40 Order name: XRAY Chest (1 view); Complete Time: 19:47 sp3 12/16 18:40 Order name: CT Head C Spine; Complete Time: 19:47 sp3 12/16 18:40 Order name: CT Facial Bones W/O Con; Complete Time: 19:47 sp3 12/16 18:40 Order name: EKG; Complete Time: 18:40 sp3 12/16 20:20 Order name: CONS Physician Consult EDMS 12/16 18:40 Order name: Cardiac monitoring; Complete Time: 18:49 sp3 12/16 18:40 Order name: EKG - Nurse/Tech; Complete Time: 18:45 sp3 12/16 18:40 Order name: IV Saline Lock; Complete Time: 18:49 sp3 12/16 18:40 Order name: Labs collected and sent; Complete Time: 18:49 sp3 12/16 18:40 Order name: O2 Per Protocol; Complete Time: 18:49 sp3 12/16 18:40 Order name: O2 Sat Monitoring; Complete Time: 18:49 sp3 12/16 18:40 Order name: NPO; Complete Time: 18:49 sp3 Administered Medications: 20:21 Drug: Furosemide IVP 20 mg IVP once; give over 2 minutes Route: IVP; Site: right j antecubital; 21:38 Follow up: Response: Marked relief of symptoms jj7 20:21 Drug: Cefepime IVPB 1 grams IVPB at 200 ml/hr once over 30 mins; (mix in NS 100 mL) jj7 Route: IVPB; Rate: 200 ml/hr; Infused Over: 30 mins; Site: right antecubital; 21:00 Follow up: IV Status: Completed infusion jj7 20:21 Drug: Potassium Chloride PO 40 mEq PO once Route: PO; jj7 21:38 Follow up: Response: No adverse reaction jj7 Disposition Summary: 12/16/22 19:56 Hospitalization Ordered Notes: Hospitalization Status: Inpatient Admission sp3 Provider: Bandar Vizcaino sp3 [facility] sp3 Condition: Stable sp3 Problem: an acute exacerbation sp3 Symptoms: have worsened sp3 Bed/Room Type: Standard sp3 Room Assignment: 402(12/16/22 21:04) rv1 Diagnosis - CHF exacerbation, right-sided pneumonia, generalized weakness, fall, facial sp3 contusions Forms: - Medication Reconciliation Form sp3 - SBAR form sp3 - Leadership Thank You Letter sp3 Signatures: Dispatcher [employer] Florence Butler MD MD sp3 Cynthia Sharif RN RN jjAshley Churchill RN RN db Villegas, Rebecca rv1 Corrections: (The following items were deleted from the chart) 21:04 19:56 sp3 rv1
--- NOTE | 2022-12-16 20:00 | P.HP ---
Certification for Inpatient Patient admitted to: Inpatient With expected LOS: <2 Midnights Patient will require the following post-hospital care: None Practitioner: I am a practitioner with admitting privileges, knowledge of patient current condition, hospital course, and medical plan of care. Services: Services provided to patient in accordance with Admission requirements found in Title 42 Section 412.3 of the Code of Federal Regulations Patient History Date of Service: 12/17/22 History of Present Illness: 62-year-old male with past medical history of CHF, COPD, chronic pain, presents to the emergency room with shortness of breath. She reports a fall today. Hitting her head with a facial injury. She reports associated weakness, bilateral lower extremity weakness, reports associated bilateral lower extremity edema. called EMS after a fall. Reports history of congestive heart failure. Denies chest pain, abdominal pain, fever, nausea vomiting diarrhea, recent infection. Plan to admit for acute on chronic heart failure, right-sided pneumonia, generalized weakness, fall, facial contusion. ER evaluation 4 BP 105 / 69; Pulse 87; Resp 18; Temp 98.7(A); Pulse Ox 90% 2 lpm laboratory evaluation, leukocytosis 12.90, early left shift 81.4, hypokalemia 2.7, acute kidney injury BUN 35 creatinine 2.19, hypocalcemia 8.0, troponin normal 32.3,, elevated BNP 4784, CT of the head and cervical spine no acute fracture, mild degenerative changes, no acute intracranial or cervical spine findings. Chest x-ray IMPRESSION: Progressive right mid to lower lung patchy airspace opacification. This suggests worsening pneumonia until proved otherwise. Allergies Tetanus Vaccines and Toxoid [Tetanus Vaccines & Toxoid] Allergy (Verified 03/25/19 02:31) Itching/Hives/Rash Home Medications: Pregabalin [Lyrica] 150 mg PO BID 06/07/16 Chlorthalidone [Hygroton 25mg Tab*] 25 mg PO DAILY 12/16/22 Fluticasone/Umeclidin/Vilanter [Trelegy Ellipta 100-62.5-25] 12/16/22 Furosemide [Lasix*] 40 mg PO DAILY 12/16/22 Morphine Sulfate [Madeleine] 30 mg PO Q4HP PRN 12/16/22 Tamsulosin [Flomax*] 0.4 mg PO BID 12/16/22 Torsemide [Demadex*] 40 mg PO DAILY 12/16/22 predniSONE [Prednisone*] 10 mg PO DAILY 12/16/22 - Past Medical/Surgical History Diabetic: No -: Chronic pain -: back surgery -: appendectomy - Family History Father -: Cancer Mother -: Cancer - Social History Alcohol use: Yes CD- Drugs: No Caffeine use: No Review of Systems 10-point ROS is otherwise unremarkable Physical Examination - Physical Exam General: In no apparent distress, Oriented x3, Other (Lethargic responds to verbal) HEENT: Other (Left maxillary edema, bruising and abrasions) Neck: Supple, 2+ carotid pulse no bruit Respiratory: Normal air movement, Crackles/rales, Rhonchi/gurgles, Other (Desaturates with exertion) Cardiovascular: Regular rate/rhythm, Normal S1 S2, Edema (Bilateral lower extremity edema with erythema) Capillary refill: <2 Seconds Gastrointestinal: Normal bowel sounds, Soft and benign Musculoskeletal: No clubbing, No swelling Integumentary: No rashes, No breakdown Neurological: Normal speech, Other (Moderate generalized weakness), Abnormal gait - Studies Laboratory Data (last 24 hrs) 12/16/22 12/16/22 12/16/22 18:45 18:45 18:45 WBC 12.90 H Hgb 17.4 Hct 52.8 H Plt Count 137 L PT 14.7 H INR 1.34 Sodium 137 Potassium 2.7 L BUN 35 H Creatinine 1.19 Glucose 124 H Magnesium 2.4 Total Bilirubin 1.3 H AST 21 ALT 58 Alkaline Phosphatase 69 Microbiology Data (last 24 hrs): 12/16/22 19:01 Nasopharnyx Influenza Type A Antigen Screen - Final 12/16/22 19:01 Nasopharnyx Influenza Type B Antigen Screen - Final Assessment and Plan - Plan Assessment plan Acute on chronic congestive heart failure acute Pneumonia right mid to lower lobe acute Fall acute Facial contusion acute Hypokalemia acute Acute on chronic kidney injury Lower extremity edema Hypocalcemia COPD Chronic pain DVT prophylaxis Assessment plan Acute on chronic congestive heart failure Bilateral lower extremity edema Cardiology consult, telemetry, diuresis, Resume appropriate home meds 105 / 69; Pulse 87; Resp 18; Temp 98.7(A); Pulse Ox 90% 2 lpm laboratory evaluation, troponin normal 32.3,, elevated BNP 4784, CT of the head and cervical spine no acute fracture, mild degenerative changes, no acute intracranial or cervical spine findings. Chest x-ray IMPRESSION: Progressive right mid to lower lung patchy airspace opacification. This suggests worsening pneumonia until proved otherwise ECG was reviewed by the Attending Physician. EKG demonstrates normal sinus rhythm at 87 bpm with normal intervals except QTc of 577, leftward axis, ectopy and nonspecific diffuse changes throughout. Lower extremity Dopplers rule out DVT ordered Pneumonia right mid to lower lobe IV antibiotics, as needed nebs, leukocytosis 12.90, early left shift 81.4, Hypokalemia Trend electrolytes replace as needed hypokalemia 2.7, Acute kidney injury BUN 35 creatinine 2.19, Nephrology consult Hypocalcemia hypocalcemia 8.0, Fall Facial contusion Fall precautions, PT eval, COPD O2 2 L, resume appropriate home meds Chronic pain As needed analgesics, DVT prophylaxis Full code Cardiac diet Discharge Plan: Home Plan to discharge in: 48 Hours - Advance Directives Does patient have a Living Will: No Does patient have a Durable POA for Healthcare: No - Code Status/Comfort Care Code Status: Full Code Physician Review: Patient Assessed, Agree with Above Assessment and Plan Critical Care: No Time Spent Managing Pts Care (In Minutes): 50
[2022-12-16] MEDS ORDERED: FUROSEMIDE 20 MG/ 2ML VIAL ONE (20:22)
[2022-12-16] MEDS ORDERED: NA CHLORIDE 0.9% 100 ML ONE (20:23)
[2022-12-16] MEDS ORDERED: POTASSIUM CL SA 10 MEQ TAB PO ONE ×2 (20:23→22:07)
[2022-12-16] MEDS ORDERED: CEFEPIME 1 GM/VIAL ONE (20:23)
[2022-12-16] MEDS ORDERED: ONDANSETRON 4 MG/2 ML VIAL IV PRN (22:07)
[2022-12-16] MEDS ORDERED: ALBUTEROL 2.5 MG/3 ML NEB SOL NEB PRN (22:07)
[2022-12-16] MEDS: AZITHROMYCIN IV 500 MG in NA CHLORIDE 0.9% 250 ML IVPB SCH (23:31)
[2022-12-17] MEDS: IPRATROPIUM BROM 0.5MG/2.5ML NEB SCH ×4 (02:00→20:20)
[2022-12-17 02:14] LABS: Absolute Lymphocytes (CBC) 1.1 K/uL (0.7-4.9); MCV 92.3 fL (80-100); MPV 9.7 fL (7.6-11.3); Platelets 139 thou/uL (152-406); RBC Red Blood Cell Count 5.64 M/uL (4.33-5.43)
[2022-12-17 02:37] LABS: BUN Blood Urea Nitrogen 30 mg/dL (7-18); Glomerular Filtration Rate 86 ml/min (=/>90); Glucose Level 115 mg/dL (74-106); Magnesium 2.4 mg/dL (1.6-2.4); NT PRO-BNP 3889 pg/mL (<125); Potassium 2.8 mEq/L (3.5-5.1); Sodium Level 139 mEq/L (136-145)
[2022-12-17 02:38] LABS: Bicarbonate > 45 mEq/L (21-32)
[2022-12-17] MEDS ORDERED: POTASSIUM CL 40 MEQ in NA CHLORIDE 0.9% 500 ML IV SCH ×4 (03:00)
[2022-12-17] MEDS: KCL 20 MEQ/100 mL IVPB 100 ML IV SCH ×2 (03:40→05:49)
[2022-12-17] MEDS ORDERED: NA CHLORIDE 0.9% 1,000 ML ONE (03:51)
[2022-12-17] MEDS: CEFEPIME 2 GM in NA CHLORIDE 0.9% 100 ML IV SCH ×2 (05:22→05:49)
--- NOTE | 2022-12-17 07:32 | RAD REPORT ---
EXAM DESCRIPTION: USExtrem Venous W Compress Bil12/17/2022 5:12 am CLINICAL HISTORY: Leg edema COMPARISON: none FINDINGS: The common femoral, superficial femoral, greater saphenous, popliteal and posterior tibial veins bilaterally are compressible and demonstrate augmentation. Doppler demonstrates good flow. Grayscale, color and spectral analysis performed on all vessels IMPRESSION: No evidence of deep venous thrombosis involving either lower extremity.
[2022-12-17 08:22] LABS: BUN Blood Urea Nitrogen 25 mg/dL (7-18); Glomerular Filtration Rate 101 ml/min (=/>90); Glucose Level 121 mg/dL (74-106); Sodium Level 138 mEq/L (136-145)
[2022-12-17 08:23] LABS: Bicarbonate > 45 mEq/L (21-32)
[2022-12-17] MEDS ORDERED: CEFTRIAXONE 1,000 MG in NA CHLORIDE 0.9% 50 ML IVPB SCH (09:00)
[2022-12-17] MEDS: AZITHROMYCIN IV 500 MG in NA CHLORIDE 0.9% 250 ML IVPB SCH (09:10)
--- NOTE | 2022-12-17 09:59 | P.CNS ---
Date of Consult: 12/17/22 Reason for Consult: Hypokalemia Requesting Physician: Jaguar Chatman Chief Complaint: Dyspnea History of Present Illness: 62-year-old male with past medical history of CHF, COPD, chronic pain, presents to the emergency room with shortness of breath. He reports a fall today. Hitting his head with a facial injury. He reports associated weakness, bilateral lower extremity weakness, reports associated bilateral lower extremity edema. called EMS after a fall. Reports history of congestive heart failure. Denies chest pain, abdominal pain, fever, nausea vomiting diarrhea, recent infection. Plan to admit for acute on chronic heart failure, right-sided pneumonia, generalized weakness, fall, facial contusion. CT of the head and cervical spine no acute fracture, mild degenerative changes, no acute intracranial or cervical spine findings. Chest x-ray IMPRESSION: Progressive right mid to lower lung patchy airspace opacification. This suggests worsening pneumonia until proved otherwise. 18:58 This 62 yrs old Male presents to ER via EMS with complaints of facial/head injury, sp3 generalized weakness, SOB. 18:58 63-year-old male with end-stage COPD, CHF, chronic pain presents to the ED after 2 sp3 ground-level mechanical falls due to increasing generalized weakness. 1 fall he injured his face and had a head injury with potential LOC. Patient has also been short of breath with peripheral edema particularly in the lower legs per his . After the second fall, EMS was activated. Patient did have some epistaxis and has dried blood in his nose according to the family. They state that he gets this way when he has CHF or his COPD has exacerbated. Patient speaks minimally at baseline so H\T\P and ROS is significantly limited.. Allergies Tetanus Vaccines and Toxoid [Tetanus Vaccines & Toxoid] Allergy (Verified 03/25/19 02:31) Itching/Hives/Rash Home medications list reviewed: Yes Home Medications: Pregabalin [Lyrica] 150 mg PO BID 06/07/16 Chlorthalidone [Hygroton 25mg Tab*] 25 mg PO DAILY 12/16/22 Fluticasone/Umeclidin/Vilanter [Trelegy Ellipta 100-62.5-25] 12/16/22 Furosemide [Lasix*] 40 mg PO DAILY 12/16/22 Morphine Sulfate [Madeleine] 30 mg PO Q4HP PRN 12/16/22 Tamsulosin [Flomax*] 0.4 mg PO BID 12/16/22 Torsemide [Demadex*] 40 mg PO DAILY 12/16/22 predniSONE [Prednisone*] 10 mg PO DAILY 12/16/22 - Past Medical/Surgical History Diabetic: No -: Chronic pain -: HTN -: Diastolic CHF -: COPD/ Chronic Hypoxic Respiratory Failure on Oxygen -: BPH with LUTS -: back surgery -: appendectomy - Family History Father Medical History: Cancer Mother Medical History: Cancer - Social History Smoking Status: Current every day smoker Alcohol use: Yes CD- Drugs: No Caffeine use: No Place of Residence: Home Review of Systems 10-point ROS is otherwise unremarkable General: Weakness, Malaise Respiratory: Shortness of Breath Physical Examination Temp Pulse Resp BP Pulse Ox 97.1 F 72 18 127/62 85 L 12/17/22 08:00 12/17/22 08:00 12/17/22 08:00 12/17/22 08:00 12/17/22 08:00 General: In no apparent distress, Cooperative Neck: Supple Respiratory: Diminished Cardiovascular: Regular rate/rhythm, Edema (Trace) Gastrointestinal: Soft and benign, W/out hepatomegaly Musculoskeletal: No clubbing, No contractures Integumentary: No rashes, No cyanosis Neurological: Abnormal speech Laboratory Data (last 24 hrs) 12/16/22 12/16/22 12/16/22 18:45 18:45 18:45 WBC 12.90 H Hgb 17.4 Hct 52.8 H Plt Count 137 L PT 14.7 H INR 1.34 Sodium 137 Potassium 2.7 L BUN 35 H Creatinine 1.19 Glucose 124 H Magnesium 2.4 Total Bilirubin 1.3 H AST 21 ALT 58 Alkaline Phosphatase 69 Imagings Data: [facility]02 pm CLINICAL HISTORY: COPD COMPARISON: Chest Single View dated 03/24/2019; Chest Pa And Lat (2 Views) dated 04/26/2018; Chest Pa And Lat (2 Views) dated 01/21/2016; CHEST PA AND LAT 2 VIEW dated 06/22/2011 TECHNIQUE: Portable AP view of the chest. FINDINGS: Progressive right mid to lower lung patchy airspace opacification, with background architectural distortion. Background changes of COPD. Stable blunting of the left costophrenic angle, may relate to stable trace effusion or pleural thickening. No pneumothorax or effusion. The cardiomediastinal contours are unremarkable. IMPRESSION: Progressive right mid to lower lung patchy airspace opacification. This suggests worsening pneumonia until proved otherwise. EXAM DESCRIPTION: USExtrem Venous W Compress Bil12/17/2022 5:12 am CLINICAL HISTORY: Leg edema COMPARISON: none FINDINGS: The common femoral, superficial femoral, greater saphenous, popliteal and posterior tibial veins bilaterally are compressible and demonstrate augmentation. Doppler demonstrates good flow. Grayscale, color and spectral analysis performed on all vessels IMPRESSION: No evidence of deep venous thrombosis involving either lower extremity. Conclusions/Impression: Hypokalemia -Replete potassium as ordered -Consider spironolactone Metabolic Alkalosis -Replete potassium as ordered -Consider Diamox Diastolic CHF, chronic Chronic Hypoxic Hypercapnic Respiratory Failure due to COPD -Continue Oxygen supplementation -Check ABG -Pulmonary consult -Consider Bipap PreDM -No sugar diet BPH with LUTS -Restart Flomax Cigarette Smoker -Recommend cessations -Nicotine TD prn Hospitalist and ER notes reviewed Thank you kindly for the consultation
[2022-12-17] MEDS ORDERED: POTASSIUM CL SA 10 MEQ TAB PO ONE ×2 (10:05→15:00)
[2022-12-17] MEDS: DRISDOL (VITAMIN D=ERGOCALCIFEROL) 50000 UNIT CAP PO SCH (12:30)
[2022-12-17] MEDS: TAMSULOSIN 0.4 MG SR CAP PO SCH (12:30)
[2022-12-17] MEDS: METHYLPREDNISOLONE 40 MG INJ IV SCH ×3 (12:57→23:56)
[2022-12-17] MEDS ORDERED: MORPHINE 15 MG IR TAB PO PRN (13:00)
[2022-12-17] MEDS: PIPER TAZO 3.375 GM in NA CHLORIDE 0.9% 100 ML IV SCH ×2 (13:03→20:47)
[2022-12-17] MEDS: LEVALBUTEROL 1.25 MG/3 ML NEB NEB SCH ×2 (13:30→20:20)
--- NOTE | 2022-12-17 13:38 | EKG ---
Test Date: 2022-12-16 Test Time: 18:42:58 Java Xml Developer: ZACHERY MEASUREMENT RESULTS: Intervals: Rate: 87 UT: 176 QRSD: 96 QT: 480 QTc: 577 [place]: P: 80 UT: 176 QRS: -79 T: 99 INTERPRETIVE STATEMENTS: Sinus rhythm with sinus arrhythmia with occasional premature ventricular complexes Left axis deviation Pulmonary disease pattern Possible Inferior infarct, age undetermined ST & T wave abnormality, consider lateral ischemia Prolonged QT Abnormal ECG Compared to ECG 03/24/2019 21:21:12 Ventricular premature complex(es) now present Left-axis deviation now present Myocardial infarct finding now present ST (T wave) deviation now present Possible ischemia now present Prolonged QT interval now present Electronically Signed On 12-17-22 13:36:19 CDT by Trey Ayers
[2022-12-17 14:12] LABS: Arterial Blood Carboxyhemoglob 7.1 % (0-1.5); Blood Gas Oxyhemoglobin 83.4 % (94-97); Blood O2 Saturation 90.9 % (92-98.5)
[2022-12-17] MEDS ORDERED: ACETAZOLAMIDE 500 MG IV IV ONE (15:02)
[2022-12-17] MEDS ORDERED: WATER FOR INJ,STERILE 10 ML ONE (15:49)
--- NOTE | 2022-12-17 16:32 | CON ---
Date of Consultation: 12/17/2022 Reason For Consultation: Heart failure management. History Of Present Illness: This is a 62-year-old male with a past medical history of congestive hea rt failure, COPD, presented to the emergency room with shortness of breath, lower extremity edema. R eported a fall recently with the head injury. He reports generalized weakness, lower extremity edema and shortness of breath. No orthopnea. No nausea, vomiting, diarrhea, or chest pain. Past Medical History: As outlined above in the HPI. Medications: Refer to reconciliation sheet for detailed list. Allergies: TETANUS. Family History: No premature coronary artery disease or cancer. Social History: Does not smoke or drink. Does not use any drugs. Review of Systems: All systems reviewed, they were negative except what mentioned in the HPI. Physical Examination: Vital Signs: Reviewed. Head and Neck: Pupils are equal, reactive to light. No cervical lymphadenopathy. Positive JVD. Lungs: Decreased breathing sounds with crackles in the bases. No accessory muscle use or muscle ret raction. Heart: Irregular. No extra sounds. Abdomen: Soft, nontender. Bowel sounds positive. No organomegaly. No masses or hernia. No rigidi ty or rebound. Extremities: No clubbing or cyanosis. Positive edema. Neurologic: Alert, awake, no acute focal deficits appreciated. Investigations: NT-proBNP is 4784, BUN is 25, creatinine 0.78. The chest x-ray suggestive of pneumo izabela, consolidation on the right side. Assessment And Recommendations: 1.Elevated NT-proBNP with shortness of breath. There could be some component of congestive heart fa ilure. Has some swelling. Agree with Lasix low-dose 20 mg twice a day and monitor accordingly. 2.Pneumonia, wide-spectrum antibiotics is being administered, pending cultures. 3.Chronic heart failure. Please obtain echo to understand his cardiac function and plan accordingly . SR/MODL Voice ID: [id number] Report ID: [id number]
[2022-12-17] MEDS ORDERED: FUROSEMIDE 20 MG/ 2ML VIAL IV SCH (17:00)
[2022-12-17] MEDS ORDERED: METHYLPREDNISOLONE 125 MG INJ IV SCH (18:00)
[2022-12-17] MEDS ORDERED: POTASSIUM 25 MEQ EFFERV TAB PO ONE (19:53)
[2022-12-17] MEDS: ARFORMOTEROL TARTRATE 15 MCG/2 ML VIAL.NEB NEB SCH (20:20)
[2022-12-17] MEDS: PREGABALIN 150 MG CAP PO SCH (20:44)
[2022-12-17] MEDS: ACETAMINOPHEN 500 MG TAB PO PRN (20:45)
[2022-12-17] MEDS ORDERED: acetaZOLAMIDE 250 MG TAB PO SCH (21:00)
[2022-12-17] MEDS ORDERED: TAMSULOSIN 0.4 MG SR CAP PO SCH (21:00)
[2022-12-18] MEDS: IPRATROPIUM BROM 0.5MG/2.5ML NEB SCH ×4 (00:30→20:00)
[2022-12-18] MEDS: LEVALBUTEROL 1.25 MG/3 ML NEB NEB SCH ×4 (00:30→20:00)
[2022-12-18 02:05] LABS: Absolute Lymphocytes (CBC) 0.4 K/uL (0.7-4.9); Lymphocytes % 3.7 % (15.3-44.8); MCV 92.7 fL (80-100); MPV 9.3 fL (7.6-11.3); Platelets 125 thou/uL (152-406); RBC Red Blood Cell Count 5.82 M/uL (4.33-5.43)
[2022-12-18 02:25] LABS: Magnesium 2.7 mg/dL (1.6-2.4); Potassium 3.4 mEq/L (3.5-5.1)
[2022-12-18 02:48] LABS: Blood Morphology Comment NOT SEEN (NOT SEEN); Platelet Estimate ADEQ
[2022-12-18] MEDS ORDERED: POTASSIUM 25 MEQ EFFERV TAB PO ONE ×2 (04:00→20:00)
[2022-12-18] MEDS: PIPER TAZO 3.375 GM in NA CHLORIDE 0.9% 100 ML IV SCH ×3 (04:00→20:03)
[2022-12-18] MEDS: METHYLPREDNISOLONE 40 MG INJ IV SCH ×3 (05:42→17:22)
[2022-12-18] MEDS: ARFORMOTEROL TARTRATE 15 MCG/2 ML VIAL.NEB NEB SCH ×2 (07:25→20:00)
--- NOTE | 2022-12-18 08:03 | ECHO ---
HEIGHT: 6 ft 0 in WEIGHT: 218 lb 9.6 oz DATE OF STUDY: 12/17/[address]: Jaguar Chatman MD 2-DIMENSIONAL: YES M.MODE: YES DOPPLER: YES COLOR FLOW: YES TDS: YES PORTABLE: YES DEFINITY: BUBBLE STUDY: DIAGNOSIS: PULMONARY HYPERTENSION CARDIAC HISTORY: CATHERIZATION: NO SURGERY: NO PROSTHETIC VALVE: NO PACEMAKER: NO MEASUREMENTS (cm) DIASTOLIC (NORMALS) SYSTOLIC (NORMALS) IVSd 1.3 (0.6-1.2) LA Diam 3.0 (1.9-4.0) LVEF 55% LVIDd 3.5 (3.5-5.7) LVIDs 2.6 (2.0-3.5) %FS 25% LVPWd 1.3 (0.6-1.2) Ao Diam 3.0 (2.0-3.7) 2 DIMENSIONAL ASSESSMENT: RIGHT ATRIUM: NORMAL LEFT ATRIUM: NORMAL RIGHT VENTRICLE: NORMAL LEFT VENTRICLE: LEFT VENTRICULAR HYPERTROPHY TRICUSPID VALVE: MILD TRICUSPID REGURGITATION MITRAL VALVE: NORMAL PULMONIC VALVE: NORMAL AORTIC VALVE: NORMAL PERICARDIAL EFFUSION: NONE AORTIC ROOT: NORMAL LEFT VENTRICULAR WALL MOTION: NORMAL DOPPLER/COLOR FLOW: SEE BELOW COMMENTS: 1. NORMAL LEFT VENTRICULAR EJECTION FRACTION 55-60% 2. MILD CONCENTRIC LEFT VENTRICULAR HYPERTROPHY 3. PULMONARY HYPERTENSION WITH RIGHT VENTRICULAR SYSTOLIC PRESSURE OF GREATER THAN 60 mmHg. TECHNOLOGIST: ANNA VENTURA
[2022-12-18] MEDS: PREGABALIN 150 MG CAP PO SCH ×2 (08:43→20:00)
[2022-12-18] MEDS: TAMSULOSIN 0.4 MG SR CAP PO SCH (08:43)
[2022-12-18] MEDS: DOCUSATE NA/SENNA CONC 1 TAB PO PRN (08:43)
[2022-12-18] MEDS: FUROSEMIDE 20 MG/ 2ML VIAL IV SCH ×2 (08:47→20:01)
[2022-12-18] MEDS ORDERED: acetaZOLAMIDE 250 MG TAB PO SCH (09:00)
[2022-12-18] MEDS: SPIRONOLACTONE 25 MG TABLET PO SCH (11:40)
[2022-12-18] MEDS ORDERED: FUROSEMIDE 20 MG/ 2ML VIAL IV SCH (12:00)
--- NOTE | 2022-12-18 19:42 | PN ---
Date of Progress Note: 12/18/2022 Subjective: Seen by bedside. He is improving. Diuresed very well overnight. Review of Systems: No chest pain. Positive shortness of breath, orthopnea, lower extremity edema. No nausea, vomiting, diarrhea. All other systems reviewed are negative. Physical Examination: Vital Signs: Reviewed. Head and Neck: Pupils are equal, reactive to light. Intact eye movements. No JVD. No cervical lym phadenopathy. Neck: Supple. Thyroid is not enlarged. Lungs: Clear to auscultation bilaterally. No rhonchi, wheezing, or crackles. No accessory muscle u se. Heart: Regular rate and rhythm. No extra sounds. Abdomen: Soft, nontender. Bowel sounds positive. No organomegaly. No masses or hernia. No rigidi ty or rebound. Extremities: Positive edema. No clubbing, cyanosis. Intact pulses. Skin: No rash. Neurologic: Alert, awake, oriented x3. No acute focal deficits appreciated. Investigations: BUN is 20, creatinine 0.84. Hemoglobin is 18. Assessment/recommendations: 1.Acute on chronic diastolic heart failure exacerbation. Continue Lasix 20 mg IV q.12 hours. He is diuresing very well. Carefully monitor BUN, creatinine, electrolytes, low-salt diet, and daily body weight. 2.Pneumonia, on antibiotics. SR/MODL Voice ID: [id number] Report ID: [id number]
[2022-12-18] MEDS: ACETAMINOPHEN 500 MG TAB PO PRN (19:58)
[2022-12-19] MEDS: METHYLPREDNISOLONE 40 MG INJ IV SCH ×4 (00:52→18:00)
[2022-12-19] MEDS: LEVALBUTEROL 1.25 MG/3 ML NEB NEB SCH ×4 (01:58→20:00)
[2022-12-19] MEDS: IPRATROPIUM BROM 0.5MG/2.5ML NEB SCH ×4 (01:58→20:00)
[2022-12-19 03:13] LABS: Absolute Lymphocytes (CBC) 0.7 K/uL (0.7-4.9); Lymphocytes % 4.6 % (15.3-44.8); MPV 9.9 fL (7.6-11.3); Platelets 159 thou/uL (152-406); RBC Red Blood Cell Count 5.83 M/uL (4.33-5.43)
[2022-12-19 03:19] LABS: Magnesium 2.6 mg/dL (1.6-2.4); Potassium 3.2 mEq/L (3.5-5.1)
[2022-12-19] MEDS ORDERED: POTASSIUM CL SA 10 MEQ TAB PO ONE ×2 (04:00→13:16)
[2022-12-19] MEDS: PIPER TAZO 3.375 GM in NA CHLORIDE 0.9% 100 ML IV SCH ×3 (04:14→20:42)
[2022-12-19] MEDS: ACETAMINOPHEN 500 MG TAB PO PRN ×3 (04:14→20:42)
[2022-12-19] MEDS: ARFORMOTEROL TARTRATE 15 MCG/2 ML VIAL.NEB NEB SCH ×2 (07:25→20:00)
[2022-12-19] MEDS: DOCUSATE NA/SENNA CONC 1 TAB PO PRN (08:18)
[2022-12-19] MEDS: acetaZOLAMIDE 250 MG TAB PO SCH (08:18)
[2022-12-19] MEDS: PREGABALIN 150 MG CAP PO SCH ×2 (08:19→20:42)
[2022-12-19] MEDS: SPIRONOLACTONE 25 MG TABLET PO SCH (08:19)
[2022-12-19] MEDS: TAMSULOSIN 0.4 MG SR CAP PO SCH (09:00)
[2022-12-19] MEDS: FUROSEMIDE 20 MG/ 2ML VIAL IV SCH ×2 (09:00→20:44)
[2022-12-19] MEDS: DRISDOL (VITAMIN D=ERGOCALCIFEROL) 50000 UNIT CAP PO SCH (12:00)
--- NOTE | 2022-12-19 21:37 | P.PN ---
Date of Service: 12/19/22 Vital Signs Temp Pulse Resp BP Pulse Ox 97.9 F 86 18 113/66 97 12/19/22 16:00 12/19/22 16:00 12/19/22 16:00 12/19/22 16:00 12/19/22 16:00 Medications Acetaminophen (Acetaminophen 500 Mg Tab) 500 mg PO Q4HP PRN PRN Reason: Pain scale 2-4 (Mild) Last Admin: 12/19/22 20:42 Dose: 500 mg Acetazolamide (Acetazolamide 250 Mg Tab) 250 mg PO DAILY FOR[facility]LY [facility], [facility] Last Admin: 12/19/22 08:18 Dose: 250 mg Arformoterol Tartrate (Arformoterol Tartrate 15 Mcg/2 Ml Vial.Neb) 15 mcg NEB BIDRESP [facility], [facility]1983 Last Admin: 12/19/22 07:25 Dose: 15 mcg Furosemide (Furosemide 20 Mg/ 2ml Vial) 20 mg IV BID [facility], [facility]1983 Last Admin: 12/19/22 20:44 Dose: 20 mg Piperacillin Sod/Tazobactam (Sod 3.375 gm/ Sodium Chloride) 100 mls @ 25 mls/hr IV 0400,1200,2000 [facility], [facility]1983; Protocol Last Admin: 12/19/22 20:42 Dose: 100 mls Ipratropium [place] (Ipratropium Brom 0.5mg/2.5ml) 0.5 mg NEB [id number] [facility], [facility]1983 Last Admin: 12/19/22 13:30 Dose: 0.5 mg Levalbuterol HCl (Levalbuterol 1.25 Mg/3 Ml Neb) 1.25 mg NEB [id number] [facility], [facility]1983 Last Admin: 12/19/22 13:30 Dose: 1.25 mg Methylprednisolone Sodium Succinate (Methylprednisolone 40 Mg Inj) 40 mg IV Q6HR [facility] Last Admin: 12/19/22 11:44 Dose: 40 mg Morphine Sulfate (Morphine 15 Mg Ir Tab) 30 mg PO Q4HP PRN PRN Reason: Pain scale 8-10 (Severe) Ondansetron HCl (Ondansetron 4 Mg/2 Ml Vial) 4 mg IV Q6HP PRN PRN Reason: NAUSEA / VOMITING Pregabalin (Pregabalin 150 Mg Cap) 150 mg PO BID [facility] Last Admin: 12/19/22 20:42 Dose: 150 mg Senna/Docusate Sodium (Docusate Na/Senna Conc 1 Tab) 2 tab PO DAILY PRN PRN Reason: CONSTIPATION Last Admin: 12/19/22 08:18 Dose: 2 tab Spironolactone (Spironolactone 25 Mg Tablet) 25 mg PO DAILY [facility] Last Admin: 12/19/22 08:19 Dose: 25 mg Tamsulosin HCl (Tamsulosin 0.4 Mg Sr Cap) 0.4 mg PO DAILY [facility] Last Admin: 12/19/22 09:00 Dose: 0.4 mg Tamsulosin HCl (Tamsulosin 0.4 Mg Sr Cap) 0.4 mg PO BID [facility] Microbiology Results 12/16/22 19:47 Blood - Blood Aerobic Blood Culture - Preliminary No growth in 24 hours. 12/16/22 19:47 Blood - Blood Anaerobic Blood Culture - Preliminary No growth in 24 hours. 12/16/22 20:07 Blood - Blood Aerobic Blood Culture - Preliminary No growth in 24 hours. 12/16/22 20:07 Blood - Blood Anaerobic Blood Culture - Preliminary No growth in 24 hours. 12/16/22 19:01 Nasopharnyx Influenza Type A Antigen Screen - Final 12/16/22 19:01 Nasopharnyx Influenza Type B Antigen Screen - Final Assessment/ Plan: Nephrology No dyspnea No chest pain No acute events overnight Vitals, medications, blood work and imaging reviewed in the chart. General: In no apparent distress, Cooperative Neck: Supple Respiratory: Diminished Cardiovascular: Regular rate/rhythm, Edema (Trace) Gastrointestinal: Soft and benign, W/out hepatomegaly Musculoskeletal: No clubbing, No contractures Integumentary: No rashes, No cyanosis Neurological: Abnormal speech Laboratory Data (last 24 hrs) 12/16/22 12/16/22 12/16/22 18:45 18:45 18:45 WBC 12.90 H Hgb 17.4 Hct 52.8 H Plt Count 137 L PT 14.7 H INR 1.34 Sodium 137 Potassium 2.7 L BUN 35 H Creatinine 1.19 Glucose 124 H Magnesium 2.4 Total Bilirubin 1.3 H AST 21 ALT 58 Alkaline Phosphatase 69 Imagings Data: EXAM DESCRIPTION: RADChest Single View12/16/2022 7:02 pm CLINICAL HISTORY: COPD COMPARISON: Chest Single View dated 03/24/2019; Chest Pa And Lat (2 Views) dated 04/26/2018; Chest Pa And Lat (2 Views) dated 01/21/2016; CHEST PA AND LAT 2 VIEW dated 06/22/2011 TECHNIQUE: Portable AP view of the chest. FINDINGS: Progressive right mid to lower lung patchy airspace opacification, with background architectural distortion. Background changes of COPD. Stable blunting of the left costophrenic angle, may relate to stable trace effusion or pleural thickening. No pneumothorax or effusion. The cardiomediastinal contours are unremarkable. IMPRESSION: Progressive right mid to lower lung patchy airspace opacification. This suggests worsening pneumonia until proved otherwise. EXAM DESCRIPTION: USExtrem Venous W Compress Bil12/17/2022 5:12 am CLINICAL HISTORY: Leg edema COMPARISON: none FINDINGS: The common femoral, superficial femoral, greater saphenous, popliteal and posterior tibial veins bilaterally are compressible and demonstrate augmentation. Doppler demonstrates good flow. Grayscale, color and spectral analysis performed on all vessels IMPRESSION: No evidence of deep venous thrombosis involving either lower extremity. Conclusions/Impression: Hypokalemia -Replete potassium as ordered -Consider spironolactone Metabolic Alkalosis -Replete potassium as ordered -Continue Diamox Diastolic CHF, chronic Chronic Hypoxic Hypercapnic Respiratory Failure due to COPD -Continue Oxygen supplementation -ABG reviewed -Bipap prn PreDM -No sugar diet BPH with LUTS -Continue Flomax Cigarette Smoker -Recommend cessations -Nicotine TD prn Hospitalist note reviewed Case reviewed with Dr. Chatman
[2022-12-20] MEDS: LEVALBUTEROL 1.25 MG/3 ML NEB NEB SCH ×3 (02:00→14:30)
[2022-12-20] MEDS: IPRATROPIUM BROM 0.5MG/2.5ML NEB SCH ×3 (02:00→14:30)
[2022-12-20] MEDS: ACETAMINOPHEN 500 MG TAB PO PRN ×2 (02:16→06:46)
[2022-12-20] MEDS: METHYLPREDNISOLONE 40 MG INJ IV SCH ×2 (02:17→06:47)
[2022-12-20] MEDS: PIPER TAZO 3.375 GM in NA CHLORIDE 0.9% 100 ML IV SCH (04:00)
[2022-12-20 05:15] LABS: Potassium 3.2 mEq/L (3.5-5.1)
[2022-12-20] MEDS: ARFORMOTEROL TARTRATE 15 MCG/2 ML VIAL.NEB NEB SCH (08:05)
[2022-12-20] MEDS: FUROSEMIDE 20 MG/ 2ML VIAL IV SCH (08:51)
[2022-12-20] MEDS: acetaZOLAMIDE 250 MG TAB PO SCH (08:52)
[2022-12-20] MEDS: DOCUSATE NA/SENNA CONC 1 TAB PO PRN (08:52)
[2022-12-20] MEDS: SPIRONOLACTONE 25 MG TABLET PO SCH (08:54)
[2022-12-20] MEDS: TAMSULOSIN 0.4 MG SR CAP PO SCH (08:54)
[2022-12-20] MEDS: PREGABALIN 150 MG CAP PO SCH (08:55)
[2022-12-20] MEDS ORDERED: POTASSIUM CL SA 10 MEQ TAB PO ONE ×2 (09:00→15:00)
[2022-12-20] MEDS ORDERED: HYDROCODONE/APAP 10/325 TAB PO PRN (12:34)
--- NOTE | 2022-12-20 16:14 | PN ---
Date of Progress Note: 12/20/2022 Subjective: Seen by bedside. He is doing a lot better but is still with significant lower extremity edema, but less short of breath, but continued to need oxygen. Review of Systems: Positive shortness of breath on exertion with orthopnea and lower extremity edema. No chest pain. N o nausea, vomiting, or diarrhea. No abdominal pain. No dysuria, polyuria, or urinary urgency. All other systems were reviewed, they were negative. Objective: Vital Signs: Reviewed. Head and Neck: Pupils are equal, reactive to light. Intact eye movements. No cervical lymphadenopa thy. No JVD. Lungs: Decreased breathing sounds. No accessory muscle use or muscle retraction Heart: Irregular. No extra sounds. Abdomen: Soft, nontender. Bowel sounds positive. No organomegaly. No masses or hernia. No rigidi ty or rebound. Extremities: No clubbing, cyanosis. Intact pulses. Skin: No rash or nodule. Neurologic: Alert, awake, oriented x3. No acute focal deficits appreciated. Lymph nodes: No cervical or axillary lymphadenopathy. Investigations: Labs were reviewed. Assessment And Recommendations: 1.Acute on chronic diastolic heart failure exacerbation. He is still fluid overloaded. IV Lasix wa s discontinued for some reason. I will start him on Lasix 40 mg by mouth daily to start today. Monitor BUN, creatinine, electrolytes. 2.Pneumonia, on IV antibiotics. SR/MODL Voice ID: [id number] Report ID: [id number]
[2022-12-21] MEDS ORDERED: FUROSEMIDE 40 MG TABLET PO SCH (09:00)
[2022-12-24 12:39] VITALS: O2SAT 95
[2022-12-24 12:42] VITALS: BP 123/70; TEMP 98.2
[2022-12-24 13:04] VITALS: BMI 29.4
== END 2022-12-20 14:50 | disposition home or self-care (01) | DRG 193 ==
LOC: ER 18:33 → ERHOLD 20:17 → 4TH 21:10
PROVIDERS: ADMIT Internal Medicine Sleep Medicine; ATTEND Hospitalist
PROC: 4A033R1 Measurement of Arterial Saturation, Peripheral, Percutaneous Approach (ICD-10-PCS; principal; 2022-12-16)
DX: J18.9 Pneumonia, unspecified organism (principal); I50.33 Acute on chronic diastolic (congestive) heart failure; J44.0 Chronic obstructive pulmonary disease with (acute) lower respiratory infection; J96.11 Chronic respiratory failure with hypoxia; N17.9 Acute kidney failure, unspecified; E87.3 Alkalosis; Z87.891 Personal history of nicotine dependence; Z99.81 Dependence on supplemental oxygen; I11.0 Hypertensive heart disease with heart failure; S00.83XA Contusion of other part of head, initial encounter; G89.29 Other chronic pain; E87.6 Hypokalemia; Z90.49 Acquired absence of other specified parts of digestive tract; E83.51 Hypocalcemia; N40.1 Benign prostatic hyperplasia with lower urinary tract symptoms; R73.03 Prediabetes; Z20.822 Contact with and (suspected) exposure to COVID-19
CPT/HCPCS: 36415; 36600; 70450; 70486; 71045; 72125; 76377; 80048; 80076; 82805; 83735; 83880; 84132; 84484; 85025; 85610; 87040; 87635; 87804; 93005; 93306; 93970; 94760; 96365; 96375; 97161; 97530; 99285; J0692; J1120; J1940; J2543; J2920; J3480; J7030; J7050; J7605; J7614; J7644

== ENCOUNTER 2023-11-18 09:27 | Inpatient (IN) | payer OTHER ==
[2023-11-18] MEDS ORDERED: CEFTRIAXONE 1000 MG/VIAL ONE (09:42)
[2023-11-18] MEDS ORDERED: NA CHLORIDE 0.9% 500 ML ONE (09:42)
[2023-11-18] MEDS ORDERED: METHYLPREDNISOLONE 125 MG INJ ONE (09:42)
[2023-11-18 09:59] LABS: Absolute Eosinophils 0.1 K/uL (0-0.5); Absolute Monocytes 1.5 K/uL (0.1-1.3); Absolute Neutrophil 8.8 K/uL (1.8-8.0); Basophils % 0.4 % (0-1.3); Eosinophils % 0.5 % (0-4.4); Hematocrit 37.2 % (39.6-49.0); Hemoglobin 12.6 g/dL (13.6-17.9); MCH 31.5 pg (27.0-35.0); MCHC 33.9 g/dL (32.0-36.0); MCV 93.1 fL (80-100); MPV 8.8 fL (7.6-11.3); Neutrophils % 77.1 % (41.7-73.7); Nucleated Red Blood Cells % 0.1 % (0-0); Platelets 141 thou/uL (152-406); Red Cell Distribution Width 13.7 % (12.1-15.2)
[2023-11-18 10:01] LABS: PT Prothrombin Time 12.2 SECONDS (9.4-12.5); Protime INR 1.09
[2023-11-18] MEDS ORDERED: NA CHLORIDE 0.9% 1,000 ML ONE (10:13)
[2023-11-18 10:24] LABS: Anion Gap 7.8 mEq/L (5.0-15.0); Potassium 3.8 mEq/L (3.5-5.1); Troponin High Sensitivity 35.1 pg/mL (<58.9)
--- NOTE | 2023-11-18 10:25 | RAD REPORT ---
EXAMINATION: ONE VIEW CHEST XR CLINICAL INDICATION: Male, 63 years old. . [facility] MA[facility] DYSPNEA Bed Name: 7 TECHNIQUE: Frontal chest projection is submitted. Examination is limited by patient positioning and t echnique. COMPARISON: 12/16/2022 FINDINGS: Moderate bilateral pulmonary opacities, greater in the right medial lung likely representing pulmonar y edema. The heart is moderately enlarged in size. IMPRESSION: [id number] CHF.
[2023-11-18 11:06] LABS: Blood Gas Oxyhemoglobin 84.6 % (94-97)
[2023-11-18 11:07] LABS: Arterial Blood Carboxyhemoglob 3.3 % (0-1.5); Blood Gas THB 12.5 g/dl (12-18)
[2023-11-18] MEDS ORDERED: NOREPINEPHRINE BITARTRATE/D5W 4 MG/250 ML KIT IV ONE (11:15)
--- NOTE | 2023-11-18 11:34 | ER ---
Nurse's Notes [facility] Name: Wisam Espinal Age: 63 yrs Sex: Male : 1960 Arrival Date: 11/18/2023 Time: 09:27 Bed 4 Private MD: Diagnosis: Heart failure, unspecified Presentation: 11/17 09:35 Chief complaint: EMS states: called for weakness and shakiness since yesterday, started ko1 new med of cymbalta on the . Shortness of breath increasing over past few days as well. Coronavirus screen: At this time, the client does not indicate any symptoms associated with coronavirus-19. Ebola Screen: No symptoms or risks identified at this time. Initial Sepsis Screen: Does the patient meet any 2 criteria? No. Patient's initial sepsis screen is negative. Does the patient have a suspected source of infection? No. Patient's initial sepsis screen is negative. Risk Assessment: Do you want to hurt yourself or someone else? Patient reports no desire to harm self or others. Onset of symptoms is unknown. Care prior to arrival: Medication(s) given: Albuterol Neb x 1, Atrovent Neb x 1. 09:35 Method Of Arrival: EMS: [facility] ko1 09:35 Acuity: ELLIOTT 2 ko1 Triage Assessment: 09:37 General: Appears distressed, obese, unkempt, Behavior is appropriate for age. Pain: ko1 Complains of pain in back. Historical: - Allergies: 09:37 Tetanus Vaccines \T\ Toxoid; ko1 - Home Meds: 10:08 albuterol sulfate 90 mcg/actuation inhalation HFA Aerosol Inhaler 2 puffs q6hrs prn ko1 [Active]; Diamox Sequels Oral 250 mg daily [Active]; Xanax 0.5 mg Oral tablet 1 tab 2 times per day [Active]; Midamor Oral 10 mg twice a day [Active]; Lipitor 40 mg Oral tablet 1 tab every day at bedtime [Active]; buprenorphine 10 mcg/hour transdermal patch, transdermal weekly 1 patch every week [Active]; duloxetine 30 mg oral capsule,delayed release (e.c.) 1 cap daily [Active]; empagliflozin 10 mg oral tablet 1 tab daily [Active]; Entresto 24-26 mg oral tablet 1 tab once [Active]; eplerenone 25 mg oral tablet 1 tab daily [Active]; Lasix 40 mg Oral tablet 1 tab daily [Active]; ipratropium bromide 0.02 % inhalation solution 1.25 mL q12 hrs [Active]; levalbuterol HCl 1.25 mg/3 mL inhalation Solution for Nebulization 3 mL every 6 hours [Active]; prednisolone 5 mg Oral tablet 2 tabs daily [Active]; pregabalin 150 mg Oral capsule 1 cap 2 times per day [Active]; tamsulosin 0.4 mg oral capsule 1 cap bid [Active]; Trelegy Ellipta 100-62.5-25 mcg inhalation Blister, With Inhalation Device 1 inhalation daily [Active]; - PMHx: 09:37 Chronic pain; COPD; Congestive heart failure; Anxiety; Depressive disorder; ko1 - Immunization history:: Adult Immunizations unknown. - Infectious Disease History:: Denies. - Social history:: Smoking status: Patient/guardian denies using tobacco. Screenin:[facility] ED Fall Risk Assessment (Adult) History of falling in the last 3 months, mb9 including since admission No falls in past 3 months (0 pts) Confusion or Disorientation No (0 pts) Intoxicated or Sedated No (0 pts) Impaired Gait No (0 pts) Mobility Assist Device Used No (0 pt) Altered Elimination No (0 pt) Score/Fall Risk Level 0 - 2 = Low Risk Oriented to surroundings, Maintained a safe environment, Educated pt \T\ family on fall prevention, incl call for assistance when getting out of bed. Abuse screen: Denies threats or abuse. Nutritional screening: No deficits noted. Tuberculosis screening: No symptoms or risk factors identified. Assessment: 10:01 General: Appears uncomfortable, ill, Behavior is anxious. Pain: Complains of pain in mb9 back. Neuro: Level of Consciousness is awake, obeys commands, lethargic, Oriented to person, place, time, situation. Cardiovascular: Rhythm is regular. Respiratory: Airway is patent Respiratory effort is labored, Respiratory pattern is tachypnea. GI: Abdomen is round non-distended. : No signs and/or symptoms were reported regarding the genitourinary system. Derm: Skin is pink, warm \T\ dry. 10:12 Reassessment: RT at bedside placing BiPaP. mb9 10:20 Respiratory: Patient placed on BiPAP: Inspiratory Pressure: 18 Expiratory (EPAP) mb9 Pressure: 8 FiO2%: 50 Respiratory Rate: 20. 11:03 Reassessment: No changes from previously documented assessment. Patient and/or family mb9 updated on plan of care and expected duration. Pain level reassessed. Patient states symptoms have not improved. Vital Signs: 09:35 BP 84 / 55; Pulse 94; Resp 20; Temp 98; Pulse Ox 91% on 4 lpm NC; Weight 121.11 kg; ko1 Height 5 ft. 11 in. ; 10:01 BP 92 / 43; Pulse 94; Resp 24; Pulse Ox 90% on 6 lpm NC; mb9 10:40 BP 78 / 48; Pulse 90; Resp 18; Pulse Ox 98% on BiPAP; mb9 11:02 BP 86 / 45; Pulse 90; Resp 20; Pulse Ox 97% on BiPAP; mb9 11:15 BP 82 / 44; Pulse 88; Resp 20; Pulse Ox 97% on BiPAP; FiO2 50 %; mb9 11:35 BP 84 / 44; Pulse 91; Resp 20; Pulse Ox 94% on BiPAP; FiO2 50 %; mb9 11:58 BP 90 / 41; Pulse 92; Resp 20; Pulse Ox 96% on BiPAP; FiO2 50 %; mb9 12:15 BP 75 / 31; Pulse 93; Resp 18; Pulse Ox 97% on BiPAP; ko1 12:23 BP 105 / 51; ec2 12:30 BP 107 / 46; Pulse 92; Resp 16; Pulse Ox 99% on BiPAP; ko1 12:45 BP 117 / 42; Pulse 91; Resp 18; Pulse Ox 98% on BiPAP; ko1 13:34 BP 113 / 41; Pulse 87; Resp 19; Pulse Ox 100% on BiPAP; ko1 13:45 BP 109 / 41; Pulse 87; Resp 15; Pulse Ox 100% ; ko1 09:35 Body Mass Index 37.24 (121.11 kg, 180.34 cm) ko1 ED Course: 09:32 Patient arrived in ED. bd 09:34 Milton Song MD is Attending Physician. ec2 09:35 Radha Castellon RN is Primary Nurse. ko1 09:37 Triage completed. ko1 09:37 Arm band placed on right wrist. Patient placed in an exam room, on a stretcher, on ko1 oxygen, on classroom monitor, on pulse oximetry, Patient notified of wait time. 09:54 Placed in gown. Bed in low position. Call light in reach. Side rails up X 1. Client mb9 placed on continuous cardiac and pulse oximetry monitoring. NIBP monitoring applied. satellite project site monitor on. Door closed. Noise minimized. Warm blanket given. Pillow given. 09:54 Initial lab(s) drawn, by me, sent to lab. Inserted saline lock: 18 gauge in right mb9 antecubital area, using aseptic technique. Blood collected. Flushed with 10 mL NS. 09:54 EKG done, by ED staff, reviewed by Milton Song MD. mb9 10:21 XRAY Chest (1 view) In Process Unspecified. EDMS 11:33 Jaguar Chatman MD is Hospitalizing Provider. ec2 11:53 Bandar Vizcaino is Hospitalizing Provider. ec2 12:27 Provided Education on: Procedure Consent. ko1 12:27 Assisted provider with central line placement. Set up central line tray. Triple lumen ko1 line placed in left internal jugular. Line placed by Milton Song MD Placement verified by CXR, blood return, Dressed with Tegaderm, Patient tolerated well. Before procedure, did Practitioner(s) obtain informed consent? Yes. Patient \T\ family education about procedure, CLABSI prevention and S/S of infection? Yes. Time-out/Briefing performed prior to start of procedure? Yes. Was handwashing/sanitizing done immediately prior to procedure? Yes. Was patient positioned to in a way to prevent air embolism? Yes. Was procedure site sterilized? Yes, with chlorhexidine. Was the site allowed to dry? Yes. Was local anesthetic and/or sedation utilized? N/A. During the procedure, did the Practitioner(s) maintain a sterile field? Yes. Were unused ports clamped during insertion? Yes. Was a 2nd qualified MD obtained after 3 unsuccessful insertion attempts? N/A. Was blood aspirated from each lumen? Yes. After the procedure, did the Practitioner(s) clean the site and apply a sterile dressing? Yes. 12:35 CXR XRAY In Process Unspecified. EDMS 12:45 Patient admitted, IV remains in place. ko1 Administered Medications: 09:53 Drug: MethylPrednisoLONE IVP 125 mg IVP once Route: IVP; Site: right antecubital; mb9 10:16 Follow up: Response: No adverse reaction mb9 09:53 Drug: NS 0.9% IV 500 ml IV at bolus once Route: IV; Rate: bolus; Site: right mb9 antecubital; 10:16 Follow up: Response: No adverse reaction; IV Status: Completed infusion mb9 09:53 Drug: Rocephin IV 1 grams IV at calculated rate once; Given slow IV push per pharmacy mb9 instructions Route: IV; Rate: calculated rate; Site: right antecubital; 10:15 Follow up: Response: No adverse reaction; IV Status: Completed infusion; IV Intake: [id number] 10:16 Drug: NS 0.9% IV 1000 ml IV at 1 bolus Per protocol; 1000 mL bolus Route: IV; Rate: 1 mb9 bolus; Site: right antecubital; 12:30 Follow up: Response: No adverse reaction; IV Status: Completed infusion; IV Intake: ko1 1000ml 11:23 Drug: Norepinephrine IV 0.1 mcg/kg/min IV at calculated rate Per protocol; (Standard mb9 concentration 4 mg / 250 mL D5W); Recommended max rate 3 mcg/kg/min; Titrate 0.05 mcg/kg/min as often as every 5 minutes to achieve goal (see titration policy); Goal parameter MAP greater than 65 mmHg. Route: IV; Rate: calculated rate; Site: right antecubital; 14:41 Follow up: Rate change 10 mcg/min; IV Status: Infusion continued upon admission ko1 Medication: 09:54 VIS not applicable for this client. mb9 Intake: 10:15 IV: 10ml; Total: 10ml. ko1 12:30 IV: 1000ml; Total: 1010ml. ko1 Outcome: 11:33 Decision to Hospitalize by Provider. ec2 12:45 Admitted to ER Hold. Please see [facility] for further documentation. ko1 12:45 Condition: stable 12:45 Instructed on the need for admit, 14:48 Admitted to ICU accompanied by nurse, via stretcher, room 3, with oxygen, on monitor, ko1 with chart, Report called to TONY sheriff 15:36 Patient left the ED. ko1 Signatures: Dispatcher [employer] EDMS Gaby Hillman Kathy, RN RN ko1 Kristine Pettit RN RN mb9 Milton Song MD MD ec2 Corrections: (The following items were deleted from the chart) 10:18 10:08 Home Meds: fentanyl 50 mcg/hr Topical pt72; ko1 ko1 10:18 10:08 Home Meds: oxycodone 10 mg Oral tab every 6 hours; ko1 ko1 10:18 10:08 Home Meds: Lyrica Oral; ko1 ko1 11:02 10:59 BP 78 / 48; Pulse 90bpm; Resp 18bpm; Pulse Ox 98% BiPAP; mb9 mb9
--- NOTE | 2023-11-18 11:34 | EDPHYS ---
Physician Documentation [facility] Name: Wisam Espinal Age: 63 yrs Sex: Male : 1960 Arrival Date: 11/18/2023 Time: 09:27 Bed 4 Private MD: ED Physician Milton Song HPI: 11/17 09:35 This 63 yrs old Male presents to ER via Unassigned with complaints of dyspnea.ec2 09:35 Patient arrives today d/t concern for sob. Patient reports worsening sob. Hx of chf and ec2 copd, reports he is on lasix as well as inhalers which he reports medication compliance. Patient reports no vomiting, no fevers, no diarrhea. EMS reports that given the patient albuterol and Atrovent. EMS reports saturations in the mid 80s on arrival, patient is on baseline 3 L oxygen.. Historical: - Allergies: 09:37 Tetanus Vaccines \T\ Toxoid; ko1 - Home Meds: 10:08 albuterol sulfate 90 mcg/actuation inhalation HFA Aerosol Inhaler 2 puffs q6hrs prn ko1 [Active]; Diamox Sequels Oral 250 mg daily [Active]; Xanax 0.5 mg Oral tablet 1 tab 2 times per day [Active]; Midamor Oral 10 mg twice a day [Active]; Lipitor 40 mg Oral tablet 1 tab every day at bedtime [Active]; buprenorphine 10 mcg/hour transdermal patch, transdermal weekly 1 patch every week [Active]; duloxetine 30 mg oral capsule,delayed release (e.c.) 1 cap daily [Active]; empagliflozin 10 mg oral tablet 1 tab daily [Active]; Entresto 24-26 mg oral tablet 1 tab once [Active]; eplerenone 25 mg oral tablet 1 tab daily [Active]; Lasix 40 mg Oral tablet 1 tab daily [Active]; ipratropium bromide 0.02 % inhalation solution 1.25 mL q12 hrs [Active]; levalbuterol HCl 1.25 mg/3 mL inhalation Solution for Nebulization 3 mL every 6 hours [Active]; prednisolone 5 mg Oral tablet 2 tabs daily [Active]; pregabalin 150 mg Oral capsule 1 cap 2 times per day [Active]; tamsulosin 0.4 mg oral capsule 1 cap bid [Active]; Trelegy Ellipta 100-62.5-25 mcg inhalation Blister, With Inhalation Device 1 inhalation daily [Active]; - PMHx: 09:37 Chronic pain; COPD; Congestive heart failure; Anxiety; Depressive disorder; ko1 - Immunization history:: Adult Immunizations unknown. - Infectious Disease History:: Denies. - Social history:: Smoking status: Patient/guardian denies using tobacco. ROS: 09:35 Constitutional: as per hpi ec2 Exam: 09:35 Constitutional: GEN: NAD Head: atraumatic Eyes: EOMI Ears: External ears are ec2 normal. CV: regular rate, trace bilateral lower extremity edema. LUNGS: no respiratory distress, scattered wheezes, no rales, no rhonchi ABD: non-distended SKIN: no evidence of rashes MSK: no evidence of trauma Vital Signs: 09:35 BP 84 / 55; Pulse 94; Resp 20; Temp 98; Pulse Ox 91% on 4 lpm NC; Weight 121.11 kg; ko1 Height 5 ft. 11 in. ; 10:01 BP 92 / 43; Pulse 94; Resp 24; Pulse Ox 90% on 6 lpm NC; mb9 10:40 BP 78 / 48; Pulse 90; Resp 18; Pulse Ox 98% on BiPAP; mb9 11:02 BP 86 / 45; Pulse 90; Resp 20; Pulse Ox 97% on BiPAP; mb9 11:15 BP 82 / 44; Pulse 88; Resp 20; Pulse Ox 97% on BiPAP; FiO2 50 %; mb9 11:35 BP 84 / 44; Pulse 91; Resp 20; Pulse Ox 94% on BiPAP; FiO2 50 %; mb9 11:58 BP 90 / 41; Pulse 92; Resp 20; Pulse Ox 96% on BiPAP; FiO2 50 %; mb9 12:15 BP 75 / 31; Pulse 93; Resp 18; Pulse Ox 97% on BiPAP; ko1 12:23 BP 105 / 51; ec2 12:30 BP 107 / 46; Pulse 92; Resp 16; Pulse Ox 99% on BiPAP; ko1 12:45 BP 117 / 42; Pulse 91; Resp 18; Pulse Ox 98% on BiPAP; ko1 13:34 BP 113 / 41; Pulse 87; Resp 19; Pulse Ox 100% on BiPAP; ko1 13:45 BP 109 / 41; Pulse 87; Resp 15; Pulse Ox 100% ; ko1 09:35 Body Mass Index 37.24 (121.11 kg, 180.34 cm) ko1 Procedures: 12:23 Central Line: the site was prepped with Betadine, in sterile fashion, a triple lumen ec2 catheter was inserted, in the left internal jugular vein, in 1 attempts. placement was verified, by CXR, by blood return, the site was dressed with Tegaderm, using sterile technique, the patient tolerated the procedure, well. MDM: 09:34 Patient medically screened. ec2 09:35 Data reviewed: vital signs. ED course: Patient arrives today for evaluation of ec2 worsening shortness of breath examination remarkable for cardiopulmonary findings as above. Will obtain lab work, EKG, chest x-ray.. 09:39 ED course: Patient with history of CHF, patient does have trace bilateral lower ec2 extremity edema. Will start with 500 cc of crystalloid as to not precipitate worsening CHF.. 10:01 ED course: EKG independently reviewed and interpreted by me, shows normal sinus rhythm, ec2 rate of 89, no acute ST segment elevations, PVCs noted, intervals are nonactionable.. 10:06 ED course: Patient with some borderline saturations in the low 90s, upper 80s on 5 L of ec2 oxygen, will place the patient on BiPAP.. 10:25 ED course: Arterial blood gas obtained, shows respiratory acidosis with a pH of 7.25, ec2 hypoxia with a oxygen level at 60. Will place patient on BiPAP.. 10:27 ED course: Metabolic profile shows slight hyponatremia, renal dysfunction with a ec2 creatinine of 2.89, GFR 24, BNP elevated at 2700, troponin within normal ranges. Chest x-ray shows mild to moderate CHF, lactic acid within normal ranges. . 11:14 ED course: Patient with persistently low blood pressures, I had lengthy discussion with ec2 patient and family, discussed initiating hospice as well as palliative care and ultimately they are not at that point right now, will start the patient on Levophed, placed central line. Family and patient agreeable. 12:24 ED course: Placed a central line in the left IJ without any issue.. ec2 12:53 ED course: I suspect ultimately patient's main pathology is CHF versus COPD. Patient ec2 given antibiotics due to possible COPD exacerbation. Sepsis reassessment complete. Patient initiated started on Levophed and has improvement in blood pressures.. 11/17 09:34 Order name: Basic Metabolic Panel; Complete Time: 10:26 ec2 11/17 09:34 Order name: CBC with Diff; Complete Time: 10:08 ec2 11/17 09:34 Order name: NT PRO-BNP; Complete Time: 10:26 ec2 11/17 09:34 Order name: PT-INR; Complete Time: 10:08 ec2 11/17 09:34 Order name: Troponin HS; Complete Time: 10:26 ec2 11/17 09:38 Order name: Blood Culture Adult (2) ec2 11/17 09:38 Order name: Lactate w/ 2H reflex if indic.; Complete Time: 10:26 ec2 11/17 10:26 Order name: ABG; Complete Time: 11:08 ec2 11/17 12:26 Order name: Basic Metabolic Panel EDMS 11/17 12:26 Order name: Basic Metabolic Panel EDMS 11/17 12:26 Order name: Basic Metabolic Panel EDMS 11/17 12:26 Order name: Basic Metabolic Panel EDMS 11/17 12:26 Order name: Basic Metabolic Panel EDMS 11/17 12:26 Order name: Basic Metabolic Panel EDMS 11/17 12:26 Order name: Basic Metabolic Panel EDMS 11/17 12:26 Order name: Basic Metabolic Panel EDMS 11/17 12:26 Order name: CBC with Automated Diff EDMS 11/17 12:26 Order name: CBC with Automated Diff EDMS 11/17 12:26 Order name: CBC with Automated Diff EDMS 11/17 12:26 Order name: CBC with Automated Diff EDMS 11/17 12:26 Order name: CBC with Automated Diff EDMS 11/17 12:26 Order name: CBC with Automated Diff EDMS 11/17 12:26 Order name: CBC with Automated Diff EDMS 11/17 12:26 Order name: CBC with Automated Diff EDMS 11/17 12:26 Order name: Magnesium EDMS 11/17 12:26 Order name: Magnesium EDMS 11/17 12:26 Order name: Magnesium EDMS 11/17 12:26 Order name: Magnesium EDMS 11/17 12:26 Order name: Magnesium EDMS 11/17 12:26 Order name: Magnesium EDMS 11/17 12:26 Order name: Magnesium EDMS 11/17 12:26 Order name: Magnesium EDMS 11/17 12:26 Order name: Phosphorus EDMS 11/17 12:26 Order name: Phosphorus EDMS 11/17 12:26 Order name: Phosphorus EDMS 11/17 12:26 Order name: Phosphorus EDMS 11/17 12:26 Order name: Phosphorus EDMS 11/17 12:26 Order name: Phosphorus EDMS 11/17 12:26 Order name: Phosphorus EDMS 11/17 12:26 Order name: Phosphorus EDMS 11/17 12:26 Order name: Troponin High Sensitivity EDMS 11/17 12:26 Order name: Troponin High Sensitivity EDMS 11/17 12:26 Order name: Troponin High Sensitivity EDMS 11/17 09:34 Order name: XRAY Chest (1 view); Complete Time: 10:26 ec2 11/17 12:24 Order name: CXR XRAY ec2 11/17 09:34 Order name: EKG; Complete Time: 09:35 ec2 11/17 12:26 Order name: CONS Physician Consult EDMS 11/17 12:26 Order name: CONS Physician Consult EDMS 11/17 09:34 Order name: Cardiac monitoring; Complete Time: 09:53 ec2 11/17 09:34 Order name: EKG - Nurse/Tech; Complete Time: 09:53 ec2 11/17 09:34 Order name: IV Saline Lock; Complete Time: 09:53 ec2 11/17 09:34 Order name: Labs collected and sent; Complete Time: 09:53 ec2 11/17 09:34 Order name: O2 Per Protocol; Complete Time: 09:53 ec2 11/17 09:34 Order name: O2 Sat Monitoring; Complete Time: 09:53 ec2 11/17 09:38 Order name: Accucheck; Complete Time: 09:53 ec2 11/17 09:38 Order name: IV Saline Lock - Large Bore; Complete Time: 09:53 ec2 11/17 09:38 Order name: Vital Signs; Complete Time: 09:53 ec2 Administered Medications: 09:53 Drug: MethylPrednisoLONE IVP 125 mg IVP once Route: IVP; Site: right antecubital; mb9 10:16 Follow up: Response: No adverse reaction mb9 09:53 Drug: NS 0.9% IV 500 ml IV at bolus once Route: IV; Rate: bolus; Site: right mb9 antecubital; 10:16 Follow up: Response: No adverse reaction; IV Status: Completed infusion mb9 09:53 Drug: Rocephin IV 1 grams IV at calculated rate once; Given slow IV push per pharmacy mb9 instructions Route: IV; Rate: calculated rate; Site: right antecubital; 10:15 Follow up: Response: No adverse reaction; IV Status: Completed infusion; IV Intake: [id number] 10:16 Drug: NS 0.9% IV 1000 ml IV at 1 bolus Per protocol; 1000 mL bolus Route: IV; Rate: 1 mb9 bolus; Site: right antecubital; 12:30 Follow up: Response: No adverse reaction; IV Status: Completed infusion; IV Intake: ko1 1000ml 11:23 Drug: Norepinephrine IV 0.1 mcg/kg/min IV at calculated rate Per protocol; (Standard mb9 concentration 4 mg / 250 mL D5W); Recommended max rate 3 mcg/kg/min; Titrate 0.05 mcg/kg/min as often as every 5 minutes to achieve goal (see titration policy); Goal parameter MAP greater than 65 mmHg. Route: IV; Rate: calculated rate; Site: right antecubital; 14:41 Follow up: Rate change 10 mcg/min; IV Status: Infusion continued upon admission ko1 Disposition: 12:25 Critical Care:. ec2 Disposition Summary: 11/18/23 11:33 Hospitalization Ordered Notes: Hospitalization Status: Inpatient Admission ec2 Condition: Stable ec2 Problem: an acute exacerbation ec2 Symptoms: have improved ec2 Bed/Room Type: Standard ec2 Provider: Bandar Vizcaino(11/18/23 11:53) ec2 Location: Intensive Care Unit(11/18/23 14:31) bd Room Assignment: 3-(11/18/23 14:31) bd Diagnosis - Heart failure, unspecified ec2 Forms: - Medication Reconciliation Form ec2 - SBAR form ec2 - Leadership Thank You Letter ec2 Critical care time excluding procedures: 12:25 Critical care time: Bedside Care: 30 minutes, Consultation: 5 minutes, Family ec2 Intervention: 10 minutes. Total time: 45 minutes Signatures: Dispatcher [employer] Gaby Willard Kathy, RN RN ko1 Kristine Pettit RN RN mb9 Milton Song MD MD ec2 Corrections: (The following items were deleted from the chart) 09:35 09:34 BASIC METABOLIC PANEL+C.LAB.BRZ ordered. EDMS EDMS 09:35 09:34 CBC+H.LAB.BRZ ordered. EDMS EDMS 09:35 09:34 PROBNP+C.LAB.BRZ ordered. EDMS EDMS 09:35 09:34 PROTIME (+INR)+COAG.LAB.BRZ ordered. EDMS EDMS 09:35 09:34 Troponin High Sensitivity+C.LAB.BRZ ordered. EDMS EDMS 09:36 09:35 Patient arrives today d/t concern for sob. Patient reports worsening sob. Hx of ec2 chf and copd, reports he is on lasix as well as inhalers which he reports medication compliance. Patient reports no vomiting, no fevers, no diarrhea.. ec2 09:38 09:35 Patient arrives today d/t concern for sob. Patient reports worsening sob. Hx of ec2 chf and copd, reports he is on lasix as well as inhalers which he reports medication compliance. Patient reports no vomiting, no fevers, no diarrhea. EMS reports that given the patient albuterol and Atrovent.. ec2 10:10 09:35 Constitutional: GEN: NAD Head: atraumatic Eyes: EOMI Ears: External ears are ec2 normal. CV: regular rate LUNGS: no respiratory distress, scattered wheezes, no rales, no rhonchi ABD: non-distended SKIN: no evidence of rashes MSK: no evidence of trauma ec2 10:18 10:08 Home Meds: fentanyl 50 mcg/hr Topical pt72; ko1 ko1 10:18 10:08 Home Meds: oxycodone 10 mg Oral tab every 6 hours; ko1 ko1 10:18 10:08 Home Meds: Lyrica Oral; ko1 ko1 11:53 11:33 Jaguar Chatman ec2 ec2 12:25 12:25 Chest Single View+RAD.RAD.BRZ ordered. EDCA EDMS 14:31 11:33 Intensive Care Unit ec2 bd 14:31 11:33 ec2 bd
--- NOTE | 2023-11-18 12:27 | P.HP ---
Certification for Inpatient Patient admitted to: Inpatient With expected LOS: >2 Midnights Patient will require the following post-hospital care: None Practitioner: I am a practitioner with admitting privileges, knowledge of patient current condition, hospital course, and medical plan of care. Services: Services provided to patient in accordance with Admission requirements found in Title 42 Section 412.3 of the Code of Federal Regulations Patient History Date of Service: 11/19/23 Reason for admission: Acute hypoxic respiratory failure History of Present Illness: Wisam Espinal is a 63 year old male with Pmhx chronic pain, COPD, CHF, anxiety, and depressive disorder who presents to the ED with chief complaint of dyspnea for 4 days. He reports a history of COPD and congestive heart failure as well as being compliant with Lasix and other medications. On evaluation, He is wearing the bipap, lethargic, breath sounds with expiratory wheezes, and hy potensive. Chest x-ray reports "Moderate bilateral pulmonary opacities, greater in the right medial lung likely representing pulmonary edema. The heart is moderately enlarged in size.IMPRESSION: [id number] CHF." Laboratory evaluation with sodium 131, chloride 90, bicarb 37, BUN/creatinine 56/2.89, GFR 24, glucose 123, BNP 2713, ABG showing pH 7.25, pCO2 84.8, pO2 59.8, HCO3 36. Initial vitals BP 84 / 55; Pulse 94; Resp 20; Temp 98; Pulse Ox 91% on 4 lpm NC Wisam will be admitted to hospitalist service for further evaluation and treatment, Dr. Urrutia and Dr. Jefferson consulted. Allergies Tetanus Vaccines and Toxoid [Tetanus Vaccines & Toxoid] Allergy (Verified 03/25/19 02:31) Itching/Hives/Rash Home Medications: Pregabalin [Lyrica] 150 mg PO BID 06/07/16 Fluticasone/Umeclidin/Vilanter [Trelegy Ellipta 100-62.5-25] 12/16/22 Tamsulosin [Flomax*] 0.4 mg PO BID 12/16/22 Torsemide [Demadex*] 40 mg PO DAILY 12/16/22 Amox/Clavulanate [Augmentin 875-125 Tab] 1 each PO BID #10 tab 12/20/22 Arformoterol Tartrate [Brovana] 15 mcg NEB BIDRESP #60 vial.neb 12/20/22 Docusate/Senna [Senokot-S*] 1 tab PO DAILY PRN #30 tab 12/20/22 Hydrocodone 10/APAP 325 [[place] 325*] 1 tab PO Q6H PRN #30 tab 12/20/22 Ipratropium Neb [Atrovent*] 0.5 mg NEB [id number] #60 amp 12/20/22 Levalbuterol [Xopenex*] 1.25 mg NEB Q6HP PRN #60 vial 12/20/22 Spironolactone [Aldactone*] 25 mg PO DAILY #30 tab 12/20/22 Tamsulosin [Flomax*] 0.4 mg PO DAILY #30 cap 12/20/22 acetaZOLAMIDE [Diamox*] 250 mg PO DAILY #30 tab 12/20/22 predniSONE [Deltasone] 20 mg PO BID #40 tab 12/20/22 - Past Medical/Surgical History Diabetic: No -: Chronic pain -: HTN -: Diastolic CHF -: COPD/ Chronic Hypoxic Respiratory Failure on Oxygen -: BPH with LUTS -: back surgery -: appendectomy - Family History Father -: Cancer Mother -: Cancer - Social History Alcohol use: Yes CD- Drugs: No Caffeine use: No Review of Systems Respiratory: Cough, Shortness of Breath Physical Examination - Vital Signs Pulse: 86 Pulse Ox (%): 96 - Physical Exam General: Alert, In no apparent distress, Oriented x3 HEENT: Atraumatic, Normocephalic Neck: Supple, 2+ carotid pulse no bruit Respiratory: Expiratory wheezes Cardiovascular: Irregular heart rate/rhythm (Mild tachycardia) Capillary refill: <2 Seconds Gastrointestinal: Normal bowel sounds, Soft and benign, Distended (Obese) Musculoskeletal: No clubbing Integumentary: Erythema Neurological: Other (lethargic) - Studies Laboratory Data (last 24 hrs) 11/18/23 11/18/23 11/18/23 09:50 09:50 09:50 WBC 11.40 H Hgb 12.6 L Hct 37.2 L Plt Count 141 L PT 12.2 INR 1.09 Sodium 131 L Potassium 3.8 BUN 56 H Creatinine 2.89 H Glucose 123 H Assessment and Plan - Plan Assessment and Plan Acute hypoxic respiratory failure secondary to COPD exacerbation Pulmonary edema respiratory acidosis CHF Hypotension -Admit to ICU -pH 7.25, pCO2 84.8, PaO2 59.8, HCO3 36.0 -BNP 2713 -Chest xray reporting pulmonary edema -Levophed titrate PRN, maintain MAP 65 -Bipap PRN -bustillos in place -Hold Lasix for now -Dr. Urrutia consulted FREDI Hyponatremia -BUN/creatinine 56/2.89, GFR 24, sodium 131 -Dr. Jefferson consulted Hyperglycemia likey 2/2 steroid use -A1C in the AM Anxiety/Depressive disorder Chronic pain -Continue home medications DVT ppx heparin Full code LOS 2-3 days Discharge Plan: Home Plan to discharge in: 48 Hours - Advance Directives Does patient have a Living Will: No Does patient have a Durable POA for Healthcare: No
[2023-11-18] MEDS: NOREPINEPHRINE BITARTRATE/D5W 4 MG/250 ML KIT IV SCH (13:00)
--- NOTE | 2023-11-18 13:07 | RAD REPORT ---
Procedure: Chest Single View History: Device placement. Central line placement Findings: The tip of a central venous catheter lies within the superior vena cava. No pneumothorax is seen..
[2023-11-18 15:57] VITALS: BMI 35.2
[2023-11-18] MEDS: ROFLUMILAST 500 MCG TABLET PO SCH (18:27)
[2023-11-18] MEDS: HEPARIN 5000 UNIT/ML 1 ML VIAL SQ SCH (18:27)
[2023-11-18] MEDS: NYSTATIN PWDR 100000 UNIT/GM TOP SCH (18:27)
[2023-11-18] MEDS: METHYLPREDNISOLONE 40 MG INJ IV SCH (18:27)
--- NOTE | 2023-11-18 18:55 | P.CNS ---
Date of Consult: 11/18/23 Reason for Consult: FREDI/ CKD Requesting Physician: alexander rojas Chief Complaint: Acute hypoxic respiratory failure History of Present Illness: Wisam Espinal is a 63 year old male with Pmhx chronic pain, COPD, CHF, anxiety, and depressive disorder who presents to the ED with chief complaint of dyspnea for 4 days. He reports a history of COPD and congestive heart failure as well as being compliant with Lasix and other medications. On evaluation, He is wearing the bipap, lethargic, breath sounds with expiratory wheezes, and hypotensive. Chest x-ray reports "Moderate bilateral pulmonary opacities, greater in the right medial lung likely representing pulmonary edema. The heart is moderately enlarged in size.IMPRESSION: [id number] CHF." Laboratory evaluation with sodium 131, chloride 90, bicarb 37, BUN/creatinine 56/2.89, GFR 24, glucose 123, BNP 2713, ABG showing pH 7.25, pCO2 84.8, pO2 59.8, HCO3 36. [id number] 09:35 This 63 yrs old Male presents to ER via Unassigned with complaints of dyspnea.ec2 09:35 Patient arrives today d/t concern for sob. Patient reports worsening sob. Hx of chf and ec2 copd, reports he is on lasix as well as inhalers which he reports medication compliance. Patient reports no vomiting, no fevers, no diarrhea. EMS reports that given the patient albuterol and Atrovent. EMS reports saturations in the mid 80s on arrival, patient is on baseline 3 L oxygen.. Allergies Tetanus Vaccines and Toxoid [Tetanus Vaccines & Toxoid] Allergy (Verified 03/25/19 02:31) Itching/Hives/Rash Home medications list reviewed: Yes Home Medications: Pregabalin [Lyrica] 150 mg PO BID 06/07/16 Fluticasone/Umeclidin/Vilanter [Trelegy Ellipta 100-62.5-25] 12/16/22 Tamsulosin [Flomax*] 0.4 mg PO BID 12/16/22 Torsemide [Demadex*] 40 mg PO DAILY 12/16/22 Amox/Clavulanate [Augmentin 875-125 Tab] 1 each PO BID #10 tab 12/20/22 Arformoterol Tartrate [Brovana] 15 mcg NEB BIDRESP #60 vial.neb 12/20/22 Docusate/Senna [Senokot-S*] 1 tab PO DAILY PRN #30 tab 12/20/22 Hydrocodone 10/APAP 325 [[place] 325*] 1 tab PO Q6H PRN #30 tab 12/20/22 Ipratropium Neb [Atrovent*] 0.5 mg NEB [id number] #60 amp 12/20/22 Levalbuterol [Xopenex*] 1.25 mg NEB Q6HP PRN #60 vial 12/20/22 Spironolactone [Aldactone*] 25 mg PO DAILY #30 tab 12/20/22 Tamsulosin [Flomax*] 0.4 mg PO DAILY #30 cap 12/20/22 acetaZOLAMIDE [Diamox*] 250 mg PO DAILY #30 tab 12/20/22 predniSONE [Deltasone] 20 mg PO BID #40 tab 12/20/22 - Past Medical/Surgical History Diabetic: No -: Chronic pain -: HTN -: Systolic CHF -: COPD/ Chronic Hypoxic Respiratory Failure on Oxygen -: BPH with LUTS -: back surgery -: appendectomy - Family History Father Medical History: Cancer Mother Medical History: Cancer - Social History Smoking Status: Former smoker Alcohol use: Yes CD- Drugs: No Caffeine use: No Place of Residence: Home Review of Systems 10-point ROS is otherwise unremarkable General: Weakness, Malaise Respiratory: Shortness of Breath, SOB with Excertion Cardiovascular: Edema Neurological: Confusion Physical Examination Temp Pulse Resp BP Pulse Ox 97.4 F 80 18 114/52 L 99 11/18/23 16:00 11/18/23 18:45 11/18/23 18:45 11/18/23 18:45 11/18/23 18:45 General: Cooperative, Confused HEENT: Atraumatic Neck: Supple Respiratory: Diminished Cardiovascular: Regular rate/rhythm, Edema Gastrointestinal: Soft and benign, Non-distended Musculoskeletal: No clubbing, No contractures Integumentary: No rashes, No cyanosis Neurological: Normal speech Laboratory Data (last 24 hrs) 11/18/23 11/18/23 11/18/23 09:50 09:50 09:50 WBC 11.40 H Hgb 12.6 L Hct 37.2 L Plt Count 141 L PT 12.2 INR 1.09 Sodium 131 L Potassium 3.8 BUN 56 H Creatinine 2.89 H Glucose 123 H Imagings Data: [id number] Reason for Exam: central line L IJ Report Status: Signed Procedure: Chest Single View History: Device placement. Central line placement Findings: The tip of a central venous catheter lies within the superior vena cava. No pneumothorax is seen.. [id number] Reason for Exam: DYSPNEA Report Status: Signed EXAMINATION: ONE VIEW CHEST XR CLINICAL INDICATION: Male, 63 years old. . [facility] DYSPNEA Bed Name: 7 TECHNIQUE: Frontal chest projection is submitted. Examination is limited by patient positioning and technique. COMPARISON: 12/16/2022 FINDINGS: Moderate bilateral pulmonary opacities, greater in the right medial lung likely representing pulmonary edema. The heart is moderately enlarged in size. IMPRESSION: [id number] CHF. Conclusions/Impression: Stage III FREDI in the setting of hypotension complicated by CRS Proteinuria -No NSAIDs -Start Lasix as tolerated Hyponatremia -Continue Lasix Hypotension -Continue Levophed -Continue steroids Systolic CHF, A/C -Start Lasix A/C Hypoxic Hypercarbic Respiratory Failure COPD exacerbation -Continue steroids -BiPap as ordered Adrenal Insufficiency -Continue steroids Anemia in chronic illness Thrombocytopenia -Monitor CBC BPH with LUTS -Continue Rice Metabolic Encephalopathy -Continue supportive care Hospitalist and ER notes reviewed Thank you kindly for the consultation Critical Care: Yes (>30min)
[2023-11-18] MEDS: ALBUTEROL 2.5 MG/3 ML NEB SOL NEB SCH (19:53)
[2023-11-18] MEDS: IPRATROPIUM BROM 0.5MG/2.5ML NEB SCH (19:53)
[2023-11-19] MEDS: FUROSEMIDE 20 MG/ 2ML VIAL IV SCH ×2 (05:06→20:05)
[2023-11-19 05:51] LABS: Arterial Blood Carboxyhemoglob 2.2 % (0-1.5); Blood Gas Oxyhemoglobin 93.1 % (94-97); Blood O2 Saturation 96.1 % (92-98.5)
[2023-11-19 05:52] LABS: Blood Gas THB 13.9 g/dl (12-18)
[2023-11-19] MEDS ORDERED: METHYLPREDNISOLONE 125 MG INJ IV SCH (07:00)
[2023-11-19 07:23] LABS: Absolute Lymphocytes (CBC) 0.4 K/uL (0.7-4.9); Absolute Monocytes 0.9 K/uL (0.1-1.3); Absolute Neutrophil 11.2 K/uL (1.8-8.0); Hematocrit 37.9 % (39.6-49.0); Lymphocytes % 3.3 % (15.3-44.8); MCH 31.5 pg (27.0-35.0); MCHC 34.3 g/dL (32.0-36.0); MPV 9.5 fL (7.6-11.3); Monocytes % 7.5 % (3.3-12.3); Neutrophils % 89.2 % (41.7-73.7); Platelets 164 thou/uL (152-406); RBC Red Blood Cell Count 4.12 M/uL (4.33-5.43); Red Cell Distribution Width 13.2 % (12.1-15.2)
[2023-11-19 07:56] LABS: Albumin 3.4 g/dL (3.4-5.0); Albumin/Globulin Ratio 1.3 (1.1-1.8); Anion Gap 8.1 mEq/L (5.0-15.0); Bilirubin Direct 0.4 mg/dL (0-0.2); Bilirubin Indirect, Calculated 1.3 mg/dL (0.2-0.8); Bilirubin Total 1.7 mg/dL (0.2-1.0); Globulin 2.7 g/dL (2.3-3.5); Magnesium 2.4 mg/dL (1.6-2.4); Phosphorus 2.8 mg/dL (2.5-4.9); Potassium 4.1 mEq/L (3.5-5.1); Protein, Total 6.1 g/dL (6.4-8.2); Uric Acid 7.8 mg/dL (3.5-7.2)
[2023-11-19 09:09] LABS: Blood Morphology Comment NOTED (NOT SEEN); Differential Total Cells Count 100; Lymphocytes 2 % (15-42); Monocytes 6 % (0-10); Platelet Estimate ADEQ; Platelets, Giant NOTED; Segmented Neutrophils 92 % (40-80); Spherocyte 1+; Stomatocytes 2+
--- NOTE | 2023-11-19 09:43 | P.CNS ---
Date of Consult: 11/18/23 Reason for Consult: Respiratory failure Chief Complaint: Acute on chronic hypoxic respiratory failure History of Present Illness: Pt is 63 of age terminal COPD and CHG . Became acutely worse admiited with hypercapneic resp failure/ No history of fever or chills/ Very debilatated at baseline Compliant with meds/ currently on BIPAP Allergies Tetanus Vaccines and Toxoid [Tetanus Vaccines & Toxoid] Allergy (Verified 03/25/19 02:31) Itching/Hives/Rash Home Medications: Pregabalin [Lyrica] 150 mg PO BID 06/07/16 Fluticasone/Umeclidin/Vilanter [Trelegy Ellipta 100-62.5-25] 12/16/22 Tamsulosin [Flomax*] 0.4 mg PO BID 12/16/22 Torsemide [Demadex*] 40 mg PO DAILY 12/16/22 Amox/Clavulanate [Augmentin 875-125 Tab] 1 each PO BID #10 tab 12/20/22 Arformoterol Tartrate [Brovana] 15 mcg NEB BIDRESP #60 vial.neb 12/20/22 Docusate/Senna [Senokot-S*] 1 tab PO DAILY PRN #30 tab 12/20/22 Hydrocodone 10/APAP 325 [[place] [address]*] 1 tab PO Q6H PRN #30 tab 12/20/22 Ipratropium Neb [Atrovent*] 0.5 mg NEB [id number] #60 amp 12/20/22 Levalbuterol [Xopenex*] 1.25 mg NEB Q6HP PRN #60 vial 12/20/22 Spironolactone [Aldactone*] 25 mg PO DAILY #30 tab 12/20/22 Tamsulosin [Flomax*] 0.4 mg PO DAILY #30 cap 12/20/22 acetaZOLAMIDE [Diamox*] 250 mg PO DAILY #30 tab 12/20/22 predniSONE [Deltasone] 20 mg PO BID #40 tab 12/20/22 - Past Medical/Surgical History Diabetic: No -: Chronic pain -: HTN -: Systolic CHF -: COPD/ Chronic Hypoxic Respiratory Failure on Oxygen -: BPH with LUTS -: back surgery -: appendectomy - Family History Father Medical History: Cancer Mother Medical History: Cancer - Social History Smoking Status: Former smoker Alcohol use: Yes CD- Drugs: No Caffeine use: No Place of Residence: Home Review of Systems General: Weakness Respiratory: Shortness of Breath Cardiovascular: Edema Physical Examination Temp Pulse Resp BP Pulse Ox 98.6 F 82 21 H 105/76 94 11/19/23 04:00 11/19/23 07:30 11/19/23 07:30 11/19/23 07:30 11/19/23 07:30 General: Alert, Oriented x3, Mild distress Respiratory: Crackles/rales, Expiratory wheezes Cardiovascular: Regular rate/rhythm, Edema (2 plus) Gastrointestinal: Normal bowel sounds, Soft and benign Musculoskeletal: No clubbing Integumentary: No rashes Neurological: Normal speech Laboratory Data (last 24 hrs) 11/18/23 11/18/23 11/18/23 09:50 09:50 09:50 WBC 11.40 H Hgb 12.6 L Hct 37.2 L Plt Count 141 L PT 12.2 INR 1.09 Sodium 131 L Potassium 3.8 BUN 56 H Creatinine 2.89 H Glucose 123 H - Problems (1) Acute and chronic respiratory failure ([id number]) Current Visit: Yes Status: Acute Plan: PT is 63 yrs of age admitted with A/C resp failure. Terminal COPD and CHF. Chronic pain meds labs reviewed renal failure BNP elevated CXRY likley pulmonary edema. PT may qualify for NIV No history of ibstructive sleep apnea Admitted with low BP on Levophed. Agress with steroids and scheduled NEbs on lasix Qualifiers: Respiratory failure complication: hypoxia and hypercapnia Qualified Code(s): J96.21 - Acute and chronic respiratory failure with hypoxia; J96.22 - Acute and chronic respiratory failure with hypercapnia
--- NOTE | 2023-11-19 11:26 | P.PN ---
Nephrology note (S) Seen in the icu in stable condition, no resp distress, off NIPPV, BP holding, not requiring Levophed Vitals reviewed in the EMR General: NAD HEENT: Atraumatic, sclera anicteric, NC Neck: Supple Respiratory: b/l air entry, no wheezing Cardiovascular: Mostly regular, mild tachy Gastrointestinal: Soft, ND, NT Musculoskeletal: mild LE edema, shins non tender Integumentary: No rashes Neurological: Awake, alert, responsive Laboratory Data (last 24 hrs) Reviewed in the EMR Conclusions/Impression: Stage II FREDI in the setting of hemodynamic factors related to hypercarbia, hypoxia, relative hypotension, CRS, other -Cr level has promptly downward trended and pt has responded to diuretics -Cont to monitor closely Hypotension, unspecified -BP stable this AM, cont to monitor closely, use holding parameters CHF unspecified -BNP lower on repeat, cont IV lasix but will adjust dose, will add back Spironolactone A/C Hypoxic Hypercarbic Respiratory Failure COPD exacerbation -Per pulm/IM, monitor ABG as needed, add diamox
[2023-11-19] MEDS: SPIRONOLACTONE 25 MG TABLET PO SCH (12:36)
[2023-11-19] MEDS: acetaZOLAMIDE 250 MG TAB PO SCH (12:36)
--- NOTE | 2023-11-19 14:23 | P.PN ---
Date of Service: 11/19/23 Subjective Awake, on nasal cannula He reports possibly taking too many pain medications that may have contributed to this respiratory distress No new complaint ROS 10 point ROS as noted above, otherwise negative Physical Exam General: Alert and Oriented x3, NAD HEENT: Atraumatic, Normocephalic Neck: Supple, 2+ carotid pulse no bruit Respiratory: Expiratory wheezes Cardiovascular: Mild tachycardia, S1 S2 present, left chest central line Capillary refill: <2 Seconds Gastrointestinal: Normal bowel sounds, Soft on palpation, Distended (Obese) : bustillos in place Musculoskeletal: No clubbing, 1+ edema Integumentary: Erythema Neurological: grossly afoccal Vitals Reviewed Problem list Hypovolemic shock Acute hypoxic respiratory failure secondary to COPD exacerbation Pulmonary edema respiratory acidosis CHF Hypotension FREDI Hyponatremia Hyperglycemia likey 2/2 steroid use Anxiety/Depressive disorder Chronic pain Assessment and Plan Hypovolemic shock Acute hypoxic respiratory failure secondary to COPD exacerbation Pulmonary edema respiratory acidosis CHF Hypotension -Admit to ICU -initial pH 7.25, pCO2 84.8, PaO2 59.8, HCO3 36.0 -BNP 2713, redraw 783 -Chest xray reporting pulmonary edema -Levophed titrate PRN, maintain MAP 65 -Bipap PRN -bustillos in place -Lasix per nephrology -ECHO to further determine shock FREDI Hyponatremia -initial BUN/creatinine 56/2.89, GFR 24, sodium 131 -Dr. Jefferson consulted -lasix per nephrology Hyperglycemia likey 2/2 steroid use -A1C 5.1 Anxiety/Depressive disorder Chronic pain -Continue home medications DVT ppx heparin Full code LOS 2-3 days Discharge Plan: Home Plan to discharge in: 48 Hours
--- NOTE | 2023-11-19 15:44 | EKG ---
Test Date: 2023-11-18 Test Time: 09:58:20 Manager Consumer: MB MEASUREMENT RESULTS: Intervals: Rate: 89 NV: 172 QRSD: 100 QT: 376 QTc: 457 [place]: P: 78 NV: 172 QRS: -37 T: 42 INTERPRETIVE STATEMENTS: Sinus rhythm with frequent premature ventricular complexes Left axis deviation Inferior infarct, age undetermined Abnormal ECG Compared to ECG 12/16/2022 18:42:58 Sinus arrhythmia no longer present ST (T wave) deviation no longer present Possible ischemia no longer present Prolonged QT interval no longer present Myocardial infarct finding still present Electronically Signed On 11-19-23 15:39:11 CDT by Trey Ayers
[2023-11-20 05:36] LABS: Absolute Basophils 0.1 K/uL (0-0.5); Absolute Lymphocytes (CBC) 0.3 K/uL (0.7-4.9); Absolute Monocytes 0.9 K/uL (0.1-1.3); Absolute Neutrophil 11.2 K/uL (1.8-8.0); Basophils % 0.8 % (0-1.3); Eosinophils % 0.1 % (0-4.4); Hematocrit 36.2 % (39.6-49.0); Hemoglobin 12.4 g/dL (13.6-17.9); Lymphocytes % 2.8 % (15.3-44.8); MCH 31.6 pg (27.0-35.0); MCHC 34.3 g/dL (32.0-36.0); MCV 92.2 fL (80-100); MPV 9.5 fL (7.6-11.3); Monocytes % 7.4 % (3.3-12.3); Neutrophils % 88.9 % (41.7-73.7); Platelets 162 thou/uL (152-406); RBC Red Blood Cell Count 3.93 M/uL (4.33-5.43); Red Cell Distribution Width 13.5 % (12.1-15.2)
[2023-11-20 05:58] LABS: Anion Gap 7.5 mEq/L (5.0-15.0); Magnesium 1.9 mg/dL (1.6-2.4); Phosphorus 3.2 mg/dL (2.5-4.9); Potassium 3.5 mEq/L (3.5-5.1)
[2023-11-20] MEDS: POTASSIUM CL SA 10 MEQ TAB PO ONE (08:09)
--- NOTE | 2023-11-20 10:27 | P.PN ---
Date of Service: 11/20/23 Subjective Awake but conversation not making sense Downgrade to the floor Working with physical therapy No new complaint ROS 10 point ROS as noted above, otherwise negative Physical Exam General: AAO x3, NAD, confusion HEENT: Atraumatic, Normocephalic Neck: Supple, 2+ carotid pulse no bruit Respiratory: Right lung crackles, on 3 LNC, nonlabored breathing Cardiovascular: NSR, S1 S2 present, left chest central line Capillary refill: <2 Seconds Gastrointestinal: Normal bowel sounds, Soft on palpation, Distended (Obese) : bustillos in place Musculoskeletal: No clubbing, 1+ edema Integumentary: Erythema Neurological: grossly afoccal Vitals Reviewed Problem list Hypovolemic shock Acute hypoxic respiratory failure secondary to COPD exacerbation Pulmonary edema respiratory acidosis CHF Hypotension FREDI Hyponatremia Hyperglycemia likey 2/2 steroid use Anxiety/Depressive disorder Chronic pain Assessment and Plan Hypovolemic shock Acute hypoxic respiratory failure secondary to COPD exacerbation Pulmonary edema respiratory acidosis CHF Hypotension -Admit to ICU -initial pH 7.25, pCO2 84.8, PaO2 59.8, HCO3 36.0 -BNP 2713, redraw 783 -Chest xray reporting pulmonary edema -Levophed titrate PRN, maintain MAP 65 -Bipap PRN, now on nasal cannula -bustillos dc today -Lasix per nephrology -ECHO to further determine shock, results pending FREDI Hyponatremia -initial BUN/creatinine 56/2.89, GFR 24, sodium 131 -BUN/creatinine 33/1.03, GFR 82, sodium 133- improvement -Dr. Jefferson consulted -lasix per nephrology Elevated bilirubin -Tbili 1.7, direct bili 0.4, indirect bili 1.3, AST 38 -monitor in AM labs Hyperglycemia likey 2/2 steroid use -A1C 5.1 -Serum glucose 166 Anxiety/Depressive disorder Chronic pain -Continue home medications DVT ppx heparin Full code LOS 2-3 days Discharge Plan: Home Plan to discharge in: 48 Hours <Etelvina Mckeon - Last Filed: 11/20/23 16:47> Patient seen and examined. Plan of care discussed with Jose Luis Mike. He is doing much better and stable on room air. He has been awake and interactive but having difficulty with his memory. Blood pressure has been stable. Plan: Continue bronchodilators Spouse reports patient might have been oversedated by his pain medications especially Suboxone. Limit psychotropic medications. Continue IV steroids Patient is currently stable on his baseline home oxygen. <alexander rojas - Last Filed: 11/21/23 19:07>
[2023-11-20] MEDS ORDERED: LEVALBUTEROL 1.25 MG/3 ML NEB NEB PRN (11:10)
--- NOTE | 2023-11-20 12:04 | P.PN ---
Nephrology note (S) Seen in the icu in stable condition, no resp distress, off NIPPV, BP no longer low, no sig cough or secretions Vitals reviewed in the EMR General: NAD HEENT: Atraumatic, sclera anicteric, NC Neck: Supple Respiratory: b/l air entry, no wheezing Cardiovascular: Mostly regular, mild tachy Gastrointestinal: Soft, ND, NT Musculoskeletal: mild LE edema, shins non tender Integumentary: No rashes Neurological: Awake, alert, responsive Laboratory Data (last 24 hrs) Reviewed in the EMR Conclusions/Impression: Stage II FREDI in the setting of hemodynamic factors related to hypercarbia, hypoxia, relative hypotension, CRS, other -resolved -Cr level has promptly downward trended and pt has responded to diuretics -Cont to monitor closely Hypotension, unspecified -resolved -BP no longer low, cont to monitor closely CHF unspecified -BNP lower on repeat, diuresed well, will transition to PO diuretics, did add back Spironolactone A/C Hypoxic Hypercarbic Respiratory Failure -clinically improved COPD exacerbation -Per pulm/IM, monitor ABG as needed, added diamox
[2023-11-20 14:17] LABS: Arterial Blood Carboxyhemoglob 1.4 % (0-1.5); Blood Gas Oxyhemoglobin 93.4 % (94-97); Blood Gas THB 12.9 g/dl (12-18); Blood O2 Saturation 95.7 % (92-98.5)
[2023-11-20] MEDS: ARFORMOTEROL TARTRATE 15 MCG/2 ML VIAL.NEB NEB SCH (20:15)
[2023-11-20] MEDS: SACUBITRIL/VALSARTAN 49/51 MG TAB PO SCH (20:26)
[2023-11-20] MEDS: FUROSEMIDE 20 MG TABLET PO SCH (20:26)
[2023-11-20] MEDS: ALPRAZOLAM 0.5 MG TABLET PO SCH (20:26)
[2023-11-20] MEDS: PREGABALIN 75 MG CAP PO SCH (22:25)
[2023-11-21] MEDS: ACETAMINOPHEN 325 MG TABLET PO PRN (03:20)
[2023-11-21 06:41] LABS: Absolute Lymphocytes (CBC) 0.6 K/uL (0.7-4.9); Absolute Monocytes 1.3 K/uL (0.1-1.3); Absolute Neutrophil 11.5 K/uL (1.8-8.0); Basophils % 0.1 % (0-1.3); Hematocrit 37.3 % (39.6-49.0); Hemoglobin 12.4 g/dL (13.6-17.9); Lymphocytes % 4.6 % (15.3-44.8); MCH 31.2 pg (27.0-35.0); MCHC 33.3 g/dL (32.0-36.0); MCV 93.8 fL (80-100); MPV 9.3 fL (7.6-11.3); Neutrophils % 85.3 % (41.7-73.7); Platelets 185 thou/uL (152-406); RBC Red Blood Cell Count 3.98 M/uL (4.33-5.43); Red Cell Distribution Width 13.6 % (12.1-15.2)
[2023-11-21 06:57] LABS: Albumin 3.2 g/dL (3.4-5.0); Albumin/Globulin Ratio 1.1 (1.1-1.8); Bilirubin Total 1.2 mg/dL (0.2-1.0); Magnesium 2.2 mg/dL (1.6-2.4); Phosphorus 3.8 mg/dL (2.5-4.9); Protein, Total 6.2 g/dL (6.4-8.2)
[2023-11-21] MEDS: EPLERENONE 25 MG PO SCH (09:00)
[2023-11-21 09:19] VITALS: O2SAT 98
[2023-11-21] MEDS: ATORVASTATIN 40 MG TAB PO SCH (09:50)
[2023-11-21] MEDS: DULOXETINE 30 MG CAP PO SCH (09:54)
--- NOTE | 2023-11-21 11:46 | P.DS ---
Admission Date: 11/18/23 Discharge Date: 11/21/23 Reason for Admission: Acute hypoxic respiratory failure Brief History of Present Illness: Diagnosis Hypovolemic shock Acute hypoxic respiratory failure secondary to COPD exacerbation Pulmonary edema respiratory acidosis CHF Hypotension FREDI Hyponatremia Hyperglycemia likey 2/2 steroid use Anxiety/Depressive disorder Chronic pain HPI 11/18/23 Wisam Espinal is a 63 year old male with Pmhx chronic pain, COPD, CHF, anxiety, and depressive disorder who presents to the ED with chief complaint of dyspnea for 4 days. He reports a history of COPD and congestive heart failure as well as being compliant with Lasix and other medications. On evaluation, He is wearing the bipap, lethargic, breath sounds with expiratory wheezes, and hypotensive. Chest x-ray reports "Moderate bilateral pulmonary opacities, greater in the right medial lung likely representing pulmonary edema. The heart is moderately enlarged in size.IMPRESSION: [id number] CHF." Laboratory evaluation with sodium 131, chloride 90, bicarb 37, BUN/creatinine 56/2.89, GFR 24, glucose 123, BNP 2713, ABG showing pH 7.25, pCO2 84.8, pO2 59.8, HCO3 36. Initial vitals BP 84 / 55; Pulse 94; Resp 20; Temp 98; Pulse Ox 91% on 4 lpm NC Wisam will be admitted to hospitalist service for further evaluation and treatment, Dr. Urrutia and Dr. Jefferson consulted. Hospital Course: Wisam Espinal is a pleasant 63 year old male with a past medical history significant for chronic pain, COPD, CHF, anxiety, and depressive disorder who was admitted to the [facility] on 11/18/23 for Acute respiratory failure. Wisam Espinal presented to the ED with chief complaint of SOB. He reports possibly taking too many pain pills which decreased his ability to breath. He presented hypotensive and started on norepinephrine. He was found to be acidotic with hypovolemic shock requiring levophed. He reported taking too many pain medications making him short of breath and needing the Bipap in the ED. He was moved to oxygen support with nasal cannula and was weaned off of Levophed the following day. He has tolerated IV fluids stabilizing his kidney function and reducing bilirubin. He had became more active, ambulating 250 feet with physical therapy and satisfactory oxygenation. He has recovered well and is hemodynamically stable for discharge. On 11/21/23, was seen on morning rounds and deemed medically stable for discharge. Wisam was discharged with instructions to schedule follow-up appointments with PCP, nephrology, and pulmonology. Physical Exam General: Alert and oriented x3, NAD HEENT: Atraumatic, Normocephalic Neck: Supple, 2+ carotid pulse no bruit Respiratory: Bilateral clear breath sounds, on 2 LNC, symmetrical chest wall movement Cardiovascular: Regular rate and rhythm, S1 S2 present, left chest central line Capillary refill: <2 Seconds Gastrointestinal: Normal bowel sounds, Soft and benign on palpation, Distended (Obese), nontender Musculoskeletal: No clubbing, 1+ edema Integumentary: Erythema Neurological: grossly afoccal <Etelvina Mckeon - Last Filed: 11/22/23 18:40> Admission Date: 11/18/23 Discharge Date: 11/22/23 - Problems (1) Chronic diastolic heart failure Status: Acute <alexander rojas - Last Filed: 11/22/23 19:00> Disposition: ROUTINE DISCHARGE Discharge Condition: GOOD Vital Signs/Physical Exam: Temp Pulse Resp BP Pulse Ox 97.1 F 51 18 101/59 L 100 11/21/23 08:00 11/21/23 08:00 11/21/23 08:00 11/21/23 08:00 11/21/23 08:00 Laboratory Data at Discharge: WBC 13.40 thou/uL (4.3-10.9) H 11/21/23 06:20 Hgb 12.4 g/dL (13.6-17.9) L 11/21/23 06:20 Hct 37.3 % (39.6-49.0) L 11/21/23 06:20 Plt Count 185 thou/uL (152-406) 11/21/23 06:20 PT 12.2 SECONDS (9.4-12.5) 11/18/23 09:50 INR 1.09 11/18/23 09:50 Sodium 138 mEq/L (136-145) D 11/21/23 06:20 Potassium 4.0 mEq/L (3.5-5.1) D 11/21/23 06:20 BUN 26 mg/dL (7-18) H 11/21/23 06:20 Creatinine 0.86 mg/dL (0.70-1.30) 11/21/23 06:20 Glucose 141 mg/dL (74-106) H 11/21/23 06:20 Uric Acid 7.8 mg/dL (3.5-7.2) H 11/19/23 06:04 Phosphorus 3.8 mg/dL (2.5-4.9) 11/21/23 06:20 Magnesium 2.2 mg/dL (1.6-2.4) 11/21/23 06:20 Total Bilirubin 1.2 mg/dL (0.2-1.0) H 11/21/23 06:20 AST 14 U/L (15-37) L 11/21/23 06:20 ALT 21 U/L (16-61) 11/21/23 06:20 Alkaline Phosphatase 50 U/L (45-117) 11/21/23 06:20 <Etelvina Mckeon - Last Filed: 11/22/23 18:40> Vital Signs/Physical Exam: Temp Pulse Resp BP Pulse Ox 97.5 F 50 18 114/51 L 95 11/21/23 12:00 11/21/23 12:00 11/21/23 12:00 11/21/23 12:00 11/21/23 12:00 Laboratory Data at Discharge: WBC 13.40 thou/uL (4.3-10.9) H 11/21/23 06:20 Hgb 12.4 g/dL (13.6-17.9) L 11/21/23 06:20 Hct 37.3 % (39.6-49.0) L 11/21/23 06:20 Plt Count 185 thou/uL (152-406) 11/21/23 06:20 PT 12.2 SECONDS (9.4-12.5) 11/18/23 09:50 INR 1.09 11/18/23 09:50 Sodium 138 mEq/L (136-145) D 11/21/23 06:20 Potassium 4.0 mEq/L (3.5-5.1) D 11/21/23 06:20 BUN 26 mg/dL (7-18) H 11/21/23 06:20 Creatinine 0.86 mg/dL (0.70-1.30) 11/21/23 06:20 Glucose 141 mg/dL (74-106) H 11/21/23 06:20 Uric Acid 7.8 mg/dL (3.5-7.2) H 11/19/23 06:04 Phosphorus 3.8 mg/dL (2.5-4.9) 11/21/23 06:20 Magnesium 2.2 mg/dL (1.6-2.4) 11/21/23 06:20 Total Bilirubin 1.2 mg/dL (0.2-1.0) H 11/21/23 06:20 AST 14 U/L (15-37) L 11/21/23 06:20 ALT 21 U/L (16-61) 11/21/23 06:20 Alkaline Phosphatase 50 U/L (45-117) 11/21/23 06:20 <alexander rojas - Last Filed: 11/22/23 19:00> Diet: AHA Activity: Ad claire <Etelvina Mckeon - Last Filed: 11/22/23 18:40> <alexander rojas - Last Filed: 11/22/23 19:00> Home Medications: Pregabalin [Lyrica] 150 mg PO BID 06/07/16 Fluticasone/Umeclidin/Vilanter [Trelegy Ellipta 100-62.5-25] 12/16/22 Arformoterol Tartrate [Brovana] 15 mcg NEB BIDRESP #60 vial.neb 12/20/22 Ipratropium Neb [Atrovent*] 0.5 mg NEB [id number] #60 amp 12/20/22 Levalbuterol [Xopenex*] 1.25 mg NEB Q6HP PRN #60 vial 12/20/22 Alprazolam [Xanax] 0.5 mg PO BID 11/20/23 Atorvastatin Calcium [Lipitor] 40 mg PO DAILY 11/20/23 Duloxetine HCl [Cymbalta] 30 mg PO DAILY 11/20/23 Eplerenone 25 mg PO DAILY 11/20/23 Furosemide [Lasix] 20 mg PO BID 11/20/23 Potassium Chloride 20 meq PO DAILY 11/20/23 Sacubitril/Valsartan [Entresto 49 mg-51 mg Tablet] 49 - 51 mg PO BID 11/20/23 Roflumilast [Daliresp*] 500 mcg PO DAILY 11/21/23 Sacubitril/Valsartan [Entresto 49 mg-51 mg Tablet] 1 tab PO BID tab 11/21/23 Spironolactone [Aldactone*] 25 mg PO DAILY tab 11/21/23 predniSONE [Deltasone*] 40 mg PO DAILY #30 tab 11/21/23 New Medications: predniSONE [Deltasone*] 40 mg PO DAILY #30 tab Physician Discharge Instructions: 1. Please call and schedule a follow-up appointment with your PCP in 3-5 days - Please follow-up with your PCP for medication refills/adjustments -Continue medications as prescribed, caution to not use more than necessary 2. Please call and schedule a follow-up appointment with pulmonology in one week 3. 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 Continue heart healthy diet 5. activity restrictions fall precaution 6. Return to the ED if symptoms worsen Followup: Ben Jefferson DO [Primary Care Provider] -
[2023-11-21 12:45] VITALS: BP 114/51; TEMP 97.5
--- NOTE | 2023-11-22 07:05 | ECHO ---
HEIGHT: 6 ft 1 in WEIGHT: 266 lb 9.6 oz DATE OF STUDY: 11/19/[address]: Etelvina Mckeon NP 2-DIMENSIONAL: YES M.MODE: YES DOPPLER: YES COLOR FLOW: YES TDS: YES PORTABLE: YES DEFINITY: BUBBLE STUDY: DIAGNOSIS: HYPOTENSIVE, RULE OUT CARDIOGENIC SHOCK CARDIAC HISTORY: CATHERIZATION: NO SURGERY: NO PROSTHETIC VALVE: N PACEMAKER: NO MEASUREMENTS (cm) DIASTOLIC (NORMALS) SYSTOLIC (NORMALS) IVSd 1.0 (0.6-1.2) LA Diam 2.7 (1.9-4.0) LVEF 60-65% LVIDd 5.6 (3.5-5.7) LVIDs 3.4 (2.0-3.5) %FS 39% LVPWd 1.1 (0.6-1.2) Ao Diam 3.3 (2.0-3.7) 2 DIMENSIONAL ASSESSMENT: RIGHT ATRIUM: NORMAL LEFT ATRIUM: NORMAL RIGHT VENTRICLE: NORMAL LEFT VENTRICLE: NORMAL TRICUSPID VALVE: MILD TRICUSPID REGURGITATION MITRAL VALVE: MILD TRICUSPID REGURGITATION PULMONIC VALVE: NOT SEEN AORTIC VALVE: MILD AORTIC INSUFFICIENCY PERICARDIAL EFFUSION: NONE AORTIC ROOT: NORMAL LEFT VENTRICULAR WALL MOTION: NORMAL DOPPLER/COLOR FLOW: SEE BELOW COMMENTS: 1. POOR WINDOWS 2. OVERALL LEFT VENTRICULAR EJECTION FRACTION IS NORMAL 60-65% 3. MILD MITRAL REGURGITATION, TRICUSPID REGURGITATION, AORTIC INSUFFICIENCY TECHNOLOGIST: ANNA VENTURA
== END 2023-11-21 13:53 | disposition home or self-care (01) | DRG 291 ==
LOC: ER 09:27 → ERHOLD 12:19 → 3RD-ICU 14:49 → 2ND 11-20 14:43
PROVIDERS: ADMIT Internal Medicine; ATTEND Internal Medicine
PROC: 4A033R1 Measurement of Arterial Saturation, Peripheral, Percutaneous Approach (ICD-10-PCS; principal; 2023-11-18)
PROC: 5A09457 Assistance with Respiratory Ventilation, 24-96 Consecutive Hours, Continuous Positive Airway Pressure (ICD-10-PCS; 2023-11-18)
PROC: 0T9B70Z Drainage of Bladder with Drainage Device, Via Natural or Artificial Opening (ICD-10-PCS; 2023-11-18)
DX: I11.0 Hypertensive heart disease with heart failure (principal); G93.41 Metabolic encephalopathy; I50.33 Acute on chronic diastolic (congestive) heart failure; J96.21 Acute and chronic respiratory failure with hypoxia; J96.22 Acute and chronic respiratory failure with hypercapnia; R57.1 Hypovolemic shock; E87.1 Hypo-osmolality and hyponatremia; J44.1 Chronic obstructive pulmonary disease with (acute) exacerbation; E87.29 Other acidosis; N17.9 Acute kidney failure, unspecified; E27.40 Unspecified adrenocortical insufficiency; I49.3 Ventricular premature depolarization; G89.29 Other chronic pain; F32.A Depression, unspecified; F41.9 Anxiety disorder, unspecified; D69.6 Thrombocytopenia, unspecified; I95.9 Hypotension, unspecified; D63.8 Anemia in other chronic diseases classified elsewhere; N40.1 Benign prostatic hyperplasia with lower urinary tract symptoms; R73.9 Hyperglycemia, unspecified; T38.0X5A Adverse effect of glucocorticoids and synthetic analogues, initial encounter; Z78.1 Physical restraint status; Z88.7 Allergy status to serum and vaccine; Z68.35 Body mass index [BMI] 35.0-35.9, adult; Z79.01 Long term (current) use of anticoagulants; Z79.52 Long term (current) use of systemic steroids; Z90.49 Acquired absence of other specified parts of digestive tract; Z79.899 Other long term (current) drug therapy; Z87.891 Personal history of nicotine dependence
CPT/HCPCS: 36415; 36556; 36600; 71045; 80048; 80053; 80076; 82805; 83036; 83605; 83735; 83880; 84100; 84484; 84550; 85025; 85610; 87040; 93005; 93306; 94660; 96361; 96365; 96366; 96367; 96375; 97116; 97161; 97530; 99285; J0696; J1644; J1940; J2919; J7030; J7040; J7605; J7613; J7644